=== PATIENT | male | born 1955 | race Caucasian/White ===

== ENCOUNTER 2017-06-04 10:27 | Inpatient (IN) | payer BC, OTHER ==
[~2017-06-04] VITALS: Ht 172.7 cm; Wt 90.3 kg
[2017-06-04] MEDS ORDERED: SODIUM CHLORIDE 0.9% 1000ML 1,000 ML IV STA ×3 (11:13→12:53)
[2017-06-04] MEDS ORDERED: LIDOCAINE/EPINEPHRINE 1% 20 ML VIAL INFIL ONE (11:15)
--- NOTE | 2017-06-04 11:30 | EMERGENCY ROOM VISIT NOTE ---
History First contact with patient: 11:05 Chief Complaint: LACERATION/CUT (SUT/DERMABOND) Stated Complaint: CUT ON R ARM AND R LEG Nursing Triage Summary: Pt states he slipped while tubing yesterday, injured right elbow and right gilmore. History of Present Illness The patient is a 62 year old male who presents to the Emergency Room with complaints of laceration on his right elbow and right gilmore that occurred last night at 5 PM. Patient states that he was eating out of an inner tube after [place] on [place], slipped on the [place] bed and cut his elbow and gilmore on some rocks under the water. Patient states he went to an urgent care earlier today regarding his injuries and was sent to the ER for further evaluation and concern for possible infection. Patient's last tetanus shot was 2012. He is right-hand dominant. He has had some associated chills, but no fevers, no numbness or tingling, no weakness, he denies any other injuries from the fall including did not hit his head or have loss of consciousness. Review of Systems A complete 10 point review of systems was reviewed with the patient with pertinent positives and negatives as per history of present illness. All else were negative. Past Medical/Surgical History Medical Problems: (1) Septic bursitis of elbow Social History Smoking Status: Never Smoker Current/Historical Medications No Active Prescriptions or Reported Meds Physical Exam Vital Signs Date Time Temp Pulse Resp B/P (MAP) Pulse Ox O2 Delivery O2 Flow Rate FiO2 06/04/17 12:54 38.4 98 20 154/83 95 Room Air 06/04/17 10:37 37.0 70 14 184/90 98 Room Air Physical Exam CONSTITUTIONAL: No acute distress. Patient with chills and rigors. Well appearing and well nourished. Alert and oriented X 4 with normal affect. HEENT: Normocephalic, atraumatic. Pupils equal, round and reactive to light, EOMI. TMs normal. Pharynx normal. Moist mucous membranes. NECK: Supple, full active range of motion without discomfort. RESPIRATORY: Clear to auscultation bilaterally with no wheezing, crackles, rhonchi or stridor. Equal expansion bilaterally. CARDIOVASCULAR: Regular rate and rhythm with no murmurs, rubs or gallops. Normal peripheral perfusion with normal pulses all 4 extremities. No edema. GASTROINTESTINAL: Soft, nontender, nondistended. Bowel sounds present in all quadrants. MUSCULOSKELETAL: There is a 2 cm, deep laceration on the posterior elbow. The wound tracks at least 2-3 cm in all directions. There is surrounding erythema, warmth to touch, significant tenderness and swelling of the elbow. There is copious serosanguineous drainage from the wound. There is full range of motion of the elbow joint without pain. There is a 3 cm flap-type laceration on the right anterior gilmore, and no foreign body or debris noted. Full range of motion of all joints without discomfort. INTEGUMENTARY: No rash or other significant dermatologic conditions noted. NEUROLOGIC: Cranial nerves II-XII grossly intact. No focal neurologic deficits noted. Medical Decision & Procedures ER Provider Diagnostic Interpretation: RIGHT ELBOW MIN 3 VIEWS ROUTINE CLINICAL HISTORY: Laceration over joint. COMPARISON: None FINDINGS: Alignment of the right elbow is anatomic. No fracture, joint effusion or radiopaque foreign body is identified. Soft tissue gas and soft tissue irregularity consistent with laceration overlying the posterior medial aspect of the right elbow. IMPRESSION: 1. No acute fracture, joint effusion or radiopaque foreign body. 2. Laceration overlying the posterior medial aspect of the right elbow. Laboratory Results 06/04/17 11:45 Red Blood Count 5.03, Mean Corpuscular Volume 86.5, Mean Corpuscular Hemoglobin 31.0, Mean Corpuscular Hemoglobin Concent 35.9, Mean Platelet Volume 8.6, Neutrophils (%) (Auto) 78.4, Lymphocytes (%) (Auto) 13.7, Monocytes (%) (Auto) 7.1, Eosinophils (%) (Auto) 0.3, Basophils (%) (Auto) 0.1, Neutrophils # (Auto) 11.37, Lymphocytes # (Auto) 1.99, Monocytes # (Auto) 1.03, Eosinophils # (Auto) 0.04, Basophils # (Auto) 0.02 06/04/17 11:45 Test 06/04/17 11:45 06/04/17 12:49 White Blood Count 14.51 K/uL (4.8-10.8) Red Blood Count 5.03 M/uL (4.7-6.1) Hemoglobin 15.6 g/dL (14.0-18.0) Hematocrit 43.5 % (42-52) Mean Corpuscular Volume 86.5 fL (80-100) Mean Corpuscular Hemoglobin 31.0 pg (25-34) Mean Corpuscular Hemoglobin Concent 35.9 g/dl (32-36) Platelet Count 303 K/uL (130-400) Mean Platelet Volume 8.6 fL (7.4-10.4) Neutrophils (%) (Auto) 78.4 % Lymphocytes (%) (Auto) 13.7 % Monocytes (%) (Auto) 7.1 % Eosinophils (%) (Auto) 0.3 % Basophils (%) (Auto) 0.1 % Neutrophils # (Auto) 11.37 K/uL (1.4-6.5) Lymphocytes # (Auto) 1.99 K/uL (1.2-3.4) Monocytes # (Auto) 1.03 K/uL (0.11-0.59) Eosinophils # (Auto) 0.04 K/uL (0-0.5) Basophils # (Auto) 0.02 K/uL (0-0.2) RDW Standard Deviation 39.8 fL (36.4-46.3) RDW Coefficient of Variation 12.5 % (11.5-14.5) Immature Granulocyte % (Auto) 0.4 % Immature Granulocyte # (Auto) 0.06 K/uL (0.00-0.02) Erythrocyte Sedimentation Rate 15 mm/hr (0-14) Anion Gap 8.0 mmol/L (3-11) Est Creatinine Clear Calc Drug Dose 86.2 ml/min Estimated GFR () 96.6 Estimated GFR (Non- 83.3 BUN/Creatinine Ratio 17.3 (10-20) Calcium Level 9.1 mg/dl (8.5-10.1) C-Reactive Protein 1.09 mg/dl (0-0.29) Bedside Lactic Acid Venous 1.34 mmol/L (0.90-1.70) Medications Administered Medications (Trade) Dose Ordered Sig/Zelalem Route Start Time Stop Time Status Last Admin Dose Admin Sodium Chloride 1,000 ml @ 999 mls/hr Q1H1M STAT IV 06/04/17 11:13 06/04/17 12:13 DC 06/04/17 11:45 999 MLS/HR Levofloxacin (Levaquin / D5W) 750 mg NOW STAT IV 06/04/17 12:11 06/04/17 12:13 DC 06/04/17 12:50 750 MG Clindamycin Phosphate 600 mg/ Dextrose 54 ml @ 104 mls/hr NOW STAT IV 06/04/17 12:19 06/04/17 12:50 DC 06/04/17 12:49 104 MLS/HR Sodium Chloride 1,000 ml @ 125 mls/hr Q8H STAT IV 06/04/17 12:53 06/04/17 15:56 DC 06/04/17 13:25 125 MLS/HR Sodium Chloride 1,000 ml @ 999 mls/hr Q1H1M STAT IV 06/04/17 12:53 06/04/17 13:53 DC 06/04/17 13:03 999 MLS/HR Acetaminophen 100 ml @ 400 mls/hr NOW STAT IV 06/04/17 13:13 06/04/17 13:27 DC 06/04/17 13:25 400 MLS/HR Medical Decision CC: Patient presenting with complaint of lacerations of the right elbow and gilmore Interpretation of Labs: Leukocytosis with left shift, no anemia, mild hypokalemia, no other significant joint abnormality, normal renal function, normal liver enzymes. Elevated inflammatory markers. Normal lactic acid. Blood cultures pending. Differential Diagnosis: Includes, but not limited to laceration, open fracture, retained foreign body, necrotizing fasciitis, septic joint, sepsis/bacteremia, among others. Medication Reconciliation: I attest that I have personally reviewed the patient' s current medication list. Vital signs review: I reviewed the patient's vital signs and interpret them as follows: T: Febrile; BP: Hypertensive; HR: Within normal limits; RR: Within normal limits; Pulse Ox: Within normal limits on room air. Blood pressure screening: The patient was found to have an elevated blood pressure and was referred to their primary doctor for recheck and further treatment. Summary: Patient was evaluated at bedside, history of physical exam performed. Patient is alert and in no acute distress, but with shaking chills. On my bedside reassessment of his temperature, he is noted to be febrile with a temp of 38.4. There is significant erythema, swelling, tenderness over the right posterior elbow with laceration. Copious serosanguineous drainage from the laceration and the wound tracks deep within. Orders were placed at bedside for labs, blood cultures, wound culture, IV fluids for hydration, IV antibiotics to treat infection, x-ray of the right elbow to evaluate for open fracture and retained foreign body. IV Tylenol for fever. Patient is being kept nothing by mouth. Wound culture and blood cultures were collected prior to antibiotics being started. The elbow wound was irrigated with sterile saline and explored, no foreign body was found. The laceration on the right gilmore was cleaned with Betadine, copiously irrigated with normal saline, and closed loosely with Steri-Strips. Labs reviewed as above, concerning for leukocytosis and elevated inflammatory markers in setting of fevers and chills. Patient discussed with Dr. Dueñas, who agrees with my assessment and plan. I spoke with Dr. Osullivan, orthopedics, who agrees with plan to take the patient to the OR for washout today. He recommended against CT imaging of the arm. Patient reassessed multiple times throughout ED stay, he remained stable and is improving after IV fluids and antipyretics. He was stable at time of admission, plans to go to the OR for wash out of 5 PM today. Impression Primary Impression: Cellulitis of right elbow Additional Impression: Laceration of right calf without complication Departure Information Dispostion Admitted as an inpatient (plan for OR today) Condition FAIR Prescriptions No Active Prescriptions or Reported Meds Referrals All Douglas,,D.O. (PCP) Patient Instructions My [facility] Problem Qualifiers Additional Impression: Laceration of right calf without complication Encounter type: initial encounter Qualified Codes: S81.811A - Laceration without foreign body, right lower leg, initial encounter
--- NOTE | 2017-06-04 11:43 | DIAGNOSTIC IMAGING REPORT ---
RIGHT ELBOW MIN 3 VIEWS ROUTINE CLINICAL HISTORY: Laceration over joint. COMPARISON: None FINDINGS: Alignment of the right elbow is anatomic. No fracture, joint effusion or radiopaque foreign body is identified. Soft tissue gas and soft tissue irregularity consistent with laceration overlying the posterior medial aspect of the right elbow. IMPRESSION: 1. No acute fracture, joint effusion or radiopaque foreign body. 2. Laceration overlying the posterior medial aspect of the right elbow. Electronically signed by: Taqueria Salazar M.D. 06/04/2017 11:42 AM Dictated Date/Time: 06/04/2017 11:41 AM
[2017-06-04 11:56] LABS: BASO % 0.1 %; BASO ABS # 0.02 K/uL (0-0.2); COMPLETE YES; EOS % 0.3 %; HEMATOCRIT 43.5 % (42-52); IG% 0.4 %; LYMPH % 13.7 %; LYMPH ABS # 1.99 K/uL (1.2-3.4); MEAN CELL VOLUME 86.5 fL (80-100); MEAN CORPUSCULAR HGB CONC 35.9 g/dl (32-36); MEAN PLATELET VOLUME 8.6 fL (7.4-10.4); MONO % 7.1 %; NEUT % 78.4 %; PLATELET COUNT 303 K/uL (130-400); RED BLOOD COUNT 5.03 M/uL (4.7-6.1); WHITE BLOOD COUNT 14.51 K/uL (4.8-10.8)
[2017-06-04] MEDS ORDERED: LEVAQUIN 750MG / 150ML D5W IV STA (12:11)
[2017-06-04] MEDS ORDERED: CLINDAMYCIN 600 MG/54 ML D5W IV ONE (12:15)
[2017-06-04 12:19] LABS: BUN/CREATININE RATIO 17.3 (10-20); C-REACTIVE PROTEIN 1.09 mg/dl (0-0.29); CALCIUM 9.1 mg/dl (8.5-10.1); CREATININE 0.97 mg/dl (0.60-1.40); POTASSIUM 3.3 mmol/L (3.5-5.1)
[2017-06-04] MEDS ORDERED: CLINDAMYCIN IV 600 MG in DEXTROSE 5% 50ML 50 ML IV STA (12:19)
[2017-06-04] MEDS ORDERED: ACETAMINOPHEN IV 100 ML IV STA (13:13)
[2017-06-04] MEDS ORDERED: ACETAMINOPHEN 325 MG TAB PO PRN (14:00)
[2017-06-04] MEDS ORDERED: MAGNESIUM HYDROXIDE SUSP 30 ML UDC PO PRN (14:00)
[2017-06-04] MEDS ORDERED: ALUMINUM/MAGNESIUM/SIMETH (MAALOX MAX) 30 ML UDC PO PRN (14:00)
[2017-06-04] MEDS ORDERED: ONDANSETRON INJ 2 MG/ML 2 ML VIAL IV PRN ×2 (14:00→17:45)
--- NOTE | 2017-06-04 14:18 | CONSULTATION REPORT ---
DATE OF CONSULTATION: 06/04/2017 CHIEF COMPLAINT: Right elbow laceration. HISTORY OF PRESENT ILLNESS: Mr. Ramsey is a pleasant healthy 62-year-old male, who was tubing [place]. Yesterday evening, the patient attempted to get out of the [place] and slipped on some rock. He fell in his knee deep water, cutting his elbow and his gilmore on the rocks. The patient did not seek treatment last evening for his injuries. He did go to urgent care this morning and upon evaluation, he was sent to the emergency room for possible infection. The patient is right hand dominant. He is currently comfortable. He is ambulating in his room. They did irrigate the lower extremity wound and applied Steri-Strips. Upper extremity wound has been irrigated, but is fairly deep. PAST MEDICAL HISTORY: Benign. He denies heart disease, diabetes, or history of DVT. PAST SURGICAL HISTORY: Colon resection 25 years ago. SOCIAL HISTORY: The patient denies alcohol or tobacco use. He currently works for [employer], delivering supplies. REVIEW OF SYSTEMS: See HPI. Ten other systems reviewed, all negative. PHYSICAL EXAMINATION: VITAL SIGNS: Height 67 inches, weight 199 pounds, and BMI is 30. GENERAL: This is a well-developed and well-nourished male, who is alert and oriented x3. Mood and affect are appropriate. HEENT: Normocephalic and atraumatic. Mucous membranes are moist and intact. NECK: Supple without lymphadenopathy. HEART: Regular rate and rhythm without murmurs, rubs or gallops. LUNGS: Clear to auscultation without wheezes or rhonchi. ABDOMEN: Soft and nontender. Bowel sounds are equal and active. EXTREMITIES: With attention to the right upper extremity, the patient has some swelling and erythema over the elbow, extending approximately 5-6 cm in circumference. He a deep 2-cm laceration at the olecranon. He does have some serous drainage at this time. There is no purulence. The patient has full range of motion of elbow, wrist and fingers. He has no numbness and is neurovascularly intact. X-rays of the right elbow show no acute fracture, joint effusion or foreign bodies. LABORATORY RESULTS: White blood count is 14.51. Sed rate is 15. CRP is 1.09. IMPRESSION: Right elbow laceration. PLAN: The patient is being admitted by the medical service. He has already had a dose of Levaquin and clindamycin. He is n.p.o. He is going to be taken to the OR this evening for incision and drainage of the right elbow by Dr. Osullivan. Informed consent will be obtained per Dr. Osullivan when he arrived. [facility]
[2017-06-04] MEDS ORDERED: POLYETHYLENE (MIRALAX) 17 GM PACK PO PRN (14:30)
[2017-06-04 14:50] VITALS: BP 138/80; PULSE 103; TEMP 37; O2SAT 95
[2017-06-04] MEDS ORDERED: FENTANYL CITRATE INJ 50 MCG/1 ML 2 ML VIAL ONE ×2 (16:17→19:05)
[2017-06-04] MEDS ORDERED: PROPOFOL IV EMULSION 10 MG/ML 20 ML VIAL IV ONE (16:17)
[2017-06-04] MEDS ORDERED: LIDOCAINE HCL 2% 2 ML VIAL (20MG/ML) ONE (16:17)
[2017-06-04] MEDS ORDERED: ONDANSETRON INJ 2 MG/ML 2 ML VIAL ONE (16:17)
[2017-06-04] MEDS ORDERED: MIDAZOLAM HCL 1 MG/ML 2ML VIAL ONE (16:17)
[2017-06-04] MEDS ORDERED: DEXAMETHASONE SOD INJ 4 MG/ML VIAL ONE (16:17)
--- NOTE | 2017-06-04 16:22 | History and Physical ---
History & Physical Date of Service Jun 04, 2017. History & Physical admit #[id number]
[2017-06-04] MEDS ORDERED: BUPIVACAINE 0.5 % 5 MG/1 ML MPF 30ML VIAL ONE (16:33)
[2017-06-04] MEDS ORDERED: BACITRACIN 50000 UNIT VIAL ONE (16:33)
[2017-06-04 16:38] VITALS: Ht 172.7 cm; Wt 90.3 kg
--- NOTE | 2017-06-04 17:11 | HISTORY & PHYSICAL EXAMINATION ---
DATE OF ADMISSION: 06/04/2017 CHIEF COMPLAINT: Elbow pain. HISTORY OF PRESENT ILLNESS: The patient is a very pleasant 62-year-old male, who notes that yesterday he was tubing. He slipped in fresh water and hit his right elbow and his right leg. He rinsed off the area and did no other intervention. This morning, then he woke up with his right elbow hot and painful about 7/10 and it is worse with any kind of movement. He came to an urgent care. They flushed the area and then told him to come to the ER. Here, he was seen. He was irrigated further. He was started on antibiotics. Orthopedics was consulted for surgical washout, but they asked for us to be the admitting team. REVIEW OF SYSTEMS: Positive for fevers and chills. Negative for short of breath, palpitations, chest pain or tightness. No nausea or vomiting. Review of systems is otherwise negative except for as above. PAST MEDICAL HISTORY: None. MEDICATIONS: None. PAST SURGICAL HISTORY: Appendectomy, diverticulitis, and possibly some sort of abdominal surgery, he was not quite sure of about 25 years ago. SOCIAL HISTORY: Never a smoker. Alcohol, about a beer with dinner and maybe 1 or 2 more on weekend days. No recreational drugs. FAMILY HISTORY: None of significance. PHYSICAL EXAMINATION: VITAL SIGNS: Temp of 38.4, pulse 98, respiratory rate 20, blood pressure 154/83, and 95% on room air. GENERAL: He is awake, alert, and oriented x3. Pleasant, but appears to be in a mild degree of distress from elbow pain. HEENT: Normocephalic and atraumatic. Mucous membranes are moist. CARDIOVASCULAR: Regular to slightly tachycardic. No rubs, murmurs, or gallops. LUNGS: Clear to auscultation bilaterally. No rales, rhonchi, or wheezes with good effort. ABDOMEN: Soft, nondistended, and nontender. No masses or organomegaly. EXTREMITIES: Without cyanosis, clubbing or edema. His right elbow, however, is erythematous and edematous, appearing to be mostly on the extensor and lateral surface. There is a small, but deep laceration, slightly over a centimeter wide with a mild degree of exudate and surrounding erythema and tenderness. There is no crepitus. The erythema does not track much proximally. It certainly is not circumferential and the flexor surfaces of his elbow are nonedematous, nonerythematous and nontender. Otherwise extremities show no cyanosis, clubbing or edema. No calf tenderness. SKIN: Shows no other rashes, pallor or icterus. He does have significant sunburn of his face. MUSCULOSKELETAL: Other than the elbow shows no gross lesions. MENTAL STATE: Shows good recent and remote recall. Normal mood and affect. Good judgment and insight. LABS AND DIAGNOSTICS: CBC shows a white count of 14.5 with 78.4% neutrophils, hemoglobin 15.6, and platelets 303. Basic metabolic panel with sodium 140, potassium 3.3, chloride 103, CO2 of 17, creatinine 0.97, calcium 9.1, and glucose 103. CRP of 1.09. Sed rate is 15. Lactate 1.34. Cultures from the elbow and blood cultures have been sent and are pending. Elbow x-ray shows no acute fracture, joint effusion or radiopaque foreign body. There is laceration overlying the posterior medial aspect of the right elbow. ASSESSMENT AND PLAN: 1. Sepsis. This appears to be due to cellulitis and/or septic bursitis of his elbow. See below. 2. Septic bursitis/cellulitis of the elbow. Consult orthopedics for surgical washout if this appears to be warranted. He has been started on clindamycin and Levaquin in the ER. We will continue these and give him IV fluids and follow closely. 3. Deep venous thrombosis prophylaxis. Ambulation. 4. Hypokalemia, replete. MTDD
[2017-06-04] MEDS ORDERED: ATROPINE SULFATE 0.1 MG/ML 5ML SYR IV PRN (17:45)
[2017-06-04] MEDS ORDERED: EpHEDrine SULFATE INJ 50 MG/ML AMP IV PRN (17:45)
[2017-06-04] MEDS ORDERED: FENTANYL CITRATE INJ 50 MCG/1 ML 2 ML VIAL IV PRN (17:45)
[2017-06-04] MEDS ORDERED: PROMETHAZINE HCL INJ 6.25 MG in SODIUM CHLORIDE 0.9% 50ML 50 ML IV PRN (17:45)
--- NOTE | 2017-06-04 18:50 | History & Physical Bridge Note ---
H&P Re-Evaluation Bridge Note: I have examined the patient, reviewed the History & Physical and in the interval since the performance of the History & Physical I have noted the following changes of clinical significance: will plan for right elbow I and D, with olecranon bursetcotmy. i saw the patient in the holding area, discussed risks and benefits. No changes noted
[2017-06-04] MEDS ORDERED: KETOROLAC TROMETHAMINE 30 MG/ML VIAL ONE (19:29)
[2017-06-04] MEDS ORDERED: OXYCODONE/ACETAMINOPHEN 5-325 TAB PO PRN ×2 (19:45)
--- NOTE | 2017-06-04 19:52 | [facility] Post Operative Brief Note ---
Immediate Operative Summary Operative Date Jun 04, 2017. Pre-Operative Diagnosis right olecranon bursitis, right elbow infection Post-Operative Diagnosis same Procedure(s) Performed olecranon bursectomy and I and D of right elbow Surgeon margarita Nutrition Worker Surgeon(s) none Estimated Blood Loss 5 ml Findings gross purulence Specimens cutlures Drains mahnaz Anesthesia gen Complication(s) None Disposition Recovery Room / PACU
[2017-06-04 20:10] VITALS: BP 146/87; PULSE 84; TEMP 37.1; O2SAT 96
[2017-06-04] MEDS ORDERED: POTASSIUM CHLORIDE 10 MEQ TABCR PO ONE (20:15)
[2017-06-04 20:49] VITALS: BP 149/81; PULSE 76; TEMP 36.9; O2SAT 97
[2017-06-04] MEDS: CLINDAMYCIN IV 300 MG in DEXTROSE 5% 50ML 50 ML IV SCH (20:52)
--- NOTE | 2017-06-04 21:08 | Anesthesiology Progress Note ---
Anesthesia Post Op Note Date & Time Jun 04, 2017 at 21:08 Vital Signs Pain Intensity: 0 Vital Signs Past 12 Hours Date Time Temp Pulse Resp B/P (MAP) Pulse Ox O2 Delivery O2 Flow Rate FiO2 06/04/17 20:49 36.9 76 17 149/81 (103) 97 Room Air 06/04/17 20:10 37.6 87 16 148/89 98 Nasal Cannula 3 06/04/17 20:00 37.6 82 16 155/90 98 Nasal Cannula 3 06/04/17 19:50 82 20 119/98 98 Nasal Cannula 3 06/04/17 19:41 36.9 95 20 152/92 95 Nasal Cannula 3 06/04/17 17:53 37 96 16 147/89 (108) 95 Room Air 06/04/17 16:38 Room Air 06/04/17 14:50 37.0 103 17 138/80 (99) 95 Room Air 06/04/17 14:25 38.2 06/04/17 14:13 110 16 143/85 93 Room Air 06/04/17 12:54 38.4 98 20 154/83 95 Room Air 06/04/17 10:37 37.0 70 14 184/90 98 Room Air Notes Mental Status: alert / awake / arousable, participated in evaluation Pt Amnestic to Procedure: Yes Nausea / Vomiting: adequately controlled Pain: adequately controlled Airway Patency, RR, SpO2: stable & adequate BP & HR: stable & adequate Hydration State: stable & adequate Anesthetic Complications: no major complications apparent
[2017-06-04 21:17] VITALS: BP 144/87; PULSE 87; TEMP 36.7; O2SAT 96
[2017-06-04 22:10] VITALS: BP 110/69; PULSE 71; TEMP 37; O2SAT 96
--- NOTE | 2017-06-04 22:28 | OPERATIVE REPORT ---
DATE OF OPERATION: 06/04/2017 PREOPERATIVE DIAGNOSIS: Right septic olecranon bursitis. POSTOPERATIVE DIAGNOSIS: Same. PROCEDURE: 1. Right elbow irrigation and debridement. 2. Right elbow olecranon bursectomy. SURGEON: Dr. Osullivan. ADVERTISER: None. ANESTHESIA: General. INDICATIONS: This is a 62-year-old gentleman who sustained a sharp laceration in a [place] involving a rock over the olecranon bursa. He presents with olecranon bursitis. I saw him in the preoperative holding area, we discussed the risks, benefits, reasonable outcomes and expectations. His exam shows a large amount of gross purulence coming from his right elbow. Discussed possibly need for further surgery, etc. I consented him for irrigation and debridement of right elbow with olecranon bursectomy. DESCRIPTION OF PROCEDURE: The patient had a traumatic laceration directly over the olecranon bursa. This was extended proximally and distally. A large amount of gross purulence was encountered. This was sent for culture. I performed irrigation and debridement of skin, subcutaneous tissue and bone. He did have a laceration down to the bone which did involve the periosteum. With a curette, I performed debridement of bone. I then performed an olecranon bursectomy removing the olecranon bursa with scissors and a rongeur. A significant amount of infection was seen in the olecranon bursal region. The area was then copiously irrigated with 3 liters of bacitracin impregnated normal saline. I closed the surgical incisions with 2-0 nylon and left the central portion of the traumatic incision open. A Yajaira drain was applied. I injected Marcaine in the local area at the conclusion of the procedure for pain control. The patient was placed in a soft dressings and sent to the PACU in a stable condition. Postoperative plan will be remove dressings and drain on Sunday and adjust antibiotics as necessary. I discussed the results of the procedure with the family in detail. I attest to the content of the Intraoperative Record and any orders documented therein. Any exception s are noted below.
[2017-06-04 23:10] VITALS: BP 137/80; PULSE 80; TEMP 36.7; O2SAT 93
--- NOTE | 2017-06-05 00:04 | EMERGENCY ROOM VISIT NOTE ---
ED Visit Note First contact with patient: 11:05 I have seen and examined the pt at bedside. I had several discussion with the primary provider/DIPLOMATIC INTERPRETER/TRANSLATOR regarding the patients presentation/exam/labs/imaging/ disposition. Pt was well appearing at the time of my exam, receiving ivf and iv antibiotics. Discussed his condition and our concern. Discussed ortho evaluation and OR wash out planned. Pt verbalized understanding and was agreeable. Pt with mild tachycardia, other VS stable during my exam. Stated pain only at affected elbow, was offered IV pain medication and declined. Pt awaiting admission/OR wash out.
[2017-06-05] MEDS: CLINDAMYCIN IV 300 MG in DEXTROSE 5% 50ML 50 ML IV SCH ×3 (03:44→20:34)
[2017-06-05 04:06] VITALS: BP 129/72; PULSE 56; TEMP 36.6; O2SAT 96
[2017-06-05 06:16] LABS: BASO % 0.1 %; BASO ABS # 0.01 K/uL (0-0.2); COMPLETE YES; HEMATOCRIT 40.1 % (42-52); IG% 0.2 %; LYMPH % 6.3 %; MEAN CORPUSCULAR HEMOGLOBIN 29.5 pg (25-34); MEAN CORPUSCULAR HGB CONC 33.9 g/dl (32-36); MEAN PLATELET VOLUME 8.6 fL (7.4-10.4); MONO % 4.5 %; NEUT % 88.9 %; PLATELET COUNT 235 K/uL (130-400); RED BLOOD COUNT 4.61 M/uL (4.7-6.1); WHITE BLOOD COUNT 14.25 K/uL (4.8-10.8)
[2017-06-05 06:55] LABS: BUN/CREATININE RATIO 15.3 (10-20); CALCIUM 8.6 mg/dl (8.5-10.1); CREATININE 0.75 mg/dl (0.60-1.40); POTASSIUM 3.8 mmol/L (3.5-5.1)
[2017-06-05 07:37] VITALS: BP 128/76; PULSE 82; TEMP 36.6; O2SAT 95
[2017-06-05 08:44] VITALS: O2SAT 95
--- NOTE | 2017-06-05 09:54 | Orthopedic Progress Note ---
Orthopedic Progress Note Date of Service Jun 05, 2017. Subjective Post OP Day: 1 Reports: feeling well, Denies: chest pain, SOB, nausea / vomiting, light headedness, calf pain Objective calves soft nontender, N/V intact, capillary refill less than 2 sec., dressing C /D/I, A&O x3, toes mobile Date Time Temp Pulse Resp B/P (MAP) Pulse Ox O2 Delivery O2 Flow Rate FiO2 06/05/17 08:44 95 Room Air 06/05/17 07:37 36.6 82 14 128/76 (93) 95 Room Air 06/05/17 07:15 Room Air 06/05/17 04:06 36.6 56 16 129/72 (91) 96 Room Air Free Flow/[place] 06/04/17 23:20 Room Air 06/04/17 23:10 36.7 80 16 137/80 (99) 93 Room Air 06/04/17 22:10 37.0 71 18 110/69 (83) 96 Nasal Cannula 2.0 06/04/17 21:17 36.7 87 18 144/87 (106) 96 Room Air 06/04/17 20:49 36.9 76 17 149/81 (103) 97 Room Air 06/04/17 20:10 Nasal Cannula 2.0 06/04/17 20:10 37.1 84 16 146/87 (106) 96 Nasal Cannula 2.0 06/04/17 20:10 96 Nasal Cannula 2.0 06/04/17 20:10 37.6 87 16 148/89 98 Nasal Cannula 3 06/04/17 20:00 37.6 82 16 155/90 98 Nasal Cannula 3 06/04/17 19:50 82 20 119/98 98 Nasal Cannula 3 06/04/17 19:41 36.9 95 20 152/92 95 Nasal Cannula 3 06/04/17 17:53 37 96 16 147/89 (108) 95 Room Air 06/04/17 16:38 Room Air 06/04/17 14:50 37.0 103 17 138/80 (99) 95 Room Air 06/04/17 14:25 38.2 06/04/17 14:13 110 16 143/85 93 Room Air 06/04/17 12:54 38.4 98 20 154/83 95 Room Air 06/04/17 10:37 37.0 70 14 184/90 98 Room Air Laboratory Results 24 Hours: Test 06/04/17 11:45 06/05/17 05:52 White Blood Count 14.51 K/uL 14.25 K/uL Red Blood Count 5.03 M/uL 4.61 M/uL Hemoglobin 15.6 g/dL 13.6 g/dL Hematocrit 43.5 % 40.1 % Mean Corpuscular Volume 86.5 fL 87.0 fL Mean Corpuscular Hemoglobin 31.0 pg 29.5 pg Mean Corpuscular Hemoglobin Concent 35.9 g/dl 33.9 g/dl Platelet Count 303 K/uL 235 K/uL Mean Platelet Volume 8.6 fL 8.6 fL Neutrophils (%) (Auto) 78.4 % 88.9 % Lymphocytes (%) (Auto) 13.7 % 6.3 % Monocytes (%) (Auto) 7.1 % 4.5 % Eosinophils (%) (Auto) 0.3 % 0.0 % Basophils (%) (Auto) 0.1 % 0.1 % Neutrophils # (Auto) 11.37 K/uL 12.67 K/uL Lymphocytes # (Auto) 1.99 K/uL 0.90 K/uL Monocytes # (Auto) 1.03 K/uL 0.64 K/uL Eosinophils # (Auto) 0.04 K/uL 0.00 K/uL Basophils # (Auto) 0.02 K/uL 0.01 K/uL Additional Notes: GRAM STAIN Final 06/05/17-0800 RESULT MODERATE WBCs SEEN MODERATE GRAM NEGATIVE BACILLI DEEP WOUND CULTURE Preliminary 06/05/17-09 Organism 1 GRAM NEGATIVE BACILLI QUANITY MANY SENS SENSITIVITY TO FOLLOW +MIXWOUND PLUS LOW COUNTS OF PROBABLE SKIN RIVAS Assessment & Plan Assessment: POD#1 sp right olecranon bursectomy Plan: DC DRESSING/DAVIDSON SUNDAY CULTURES PENDING- CONTINUE IV CLINDA/PO LEVAQUIN PAIN CONTROL MEDICAL MGT Inhouse Planning Pain Management: Percocet
[2017-06-05] MEDS: LEVOFLOXACIN 750 MG TAB PO SCH (10:34)
[2017-06-05 11:45] VITALS: BP 138/84; PULSE 90; TEMP 36.9; O2SAT 94
[2017-06-05] MEDS ORDERED: VANCOMYCIN CONSULT ACTIVE PRN (14:45)
--- NOTE | 2017-06-05 15:24 | Pharmacy Progress Note ---
Pharmacy Antibiotic Consult Date of Service: Jun 05, 2017. Pharmacy Dosing Scope Pharmacy is consulted to initiate Vancomycin IV dosing therapy, order appropriate labs and adjust drug dose/frequency. Subjective The patient is a 62 year old male admitted on Jun 04, 2017 at 13:49. Objective Height (Feet): 5 Height (Inches): 8.00 Weight (Kilograms): 90.300 Lab Results (24hrs): Test 06/05/17 05:52 White Blood Count 14.25 K/uL (4.8-10.8) Red Blood Count 4.61 M/uL (4.7-6.1) Hemoglobin 13.6 g/dL (14.0-18.0) Hematocrit 40.1 % (42-52) Mean Corpuscular Volume 87.0 fL (80-100) Mean Corpuscular Hemoglobin 29.5 pg (25-34) Mean Corpuscular Hemoglobin Concent 33.9 g/dl (32-36) Platelet Count 235 K/uL (130-400) Mean Platelet Volume 8.6 fL (7.4-10.4) Neutrophils (%) (Auto) 88.9 % Lymphocytes (%) (Auto) 6.3 % Monocytes (%) (Auto) 4.5 % Eosinophils (%) (Auto) 0.0 % Basophils (%) (Auto) 0.1 % Neutrophils # (Auto) 12.67 K/uL (1.4-6.5) Lymphocytes # (Auto) 0.90 K/uL (1.2-3.4) Monocytes # (Auto) 0.64 K/uL (0.11-0.59) Eosinophils # (Auto) 0.00 K/uL (0-0.5) Basophils # (Auto) 0.01 K/uL (0-0.2) RDW Standard Deviation 39.5 fL (36.4-46.3) RDW Coefficient of Variation 12.3 % (11.5-14.5) Immature Granulocyte % (Auto) 0.2 % Immature Granulocyte # (Auto) 0.03 K/uL (0.00-0.02) Sodium Level 138 mmol/L (136-145) Potassium Level 3.8 mmol/L (3.5-5.1) Chloride Level 106 mmol/L (98-107) Carbon Dioxide Level 27 mmol/L (21-32) Anion Gap 5.0 mmol/L (3-11) Blood Urea Nitrogen 11 mg/dl (7-18) Creatinine 0.75 mg/dl (0.60-1.40) Est Creatinine Clear Calc Drug Dose 111.4 ml/min Estimated GFR () 113.9 Estimated GFR (Non- 98.3 BUN/Creatinine Ratio 15.3 (10-20) Random Glucose 147 mg/dl (70-99) Calcium Level 8.6 mg/dl (8.5-10.1) Micro Results: See EMR Recent Pertinent Medications Item Value Date Time Clindamycin 52 ml @ 100 mls/hr 06/04/17 2000 Phosphate 300 mg/ Q8H/IV 06/05/17 1210 Dextrose Levofloxacin 750 mg 06/05/17 1100 (Levaquin Tab) DAILY@11/PO 06/05/17 1034 Assessment & Plan 62 YO male started on vancomycin, clindamycin, and levaquin with possible right elbow cellulitis. Loading dose: 1750 mg IV X 1 dose then: 1250 mg IV every 12 hours. Goal trough level estimate: between 10 - 15 mcg/mL. Peak and trough or random level has been ordered for: @ 0330. CrCl: >100 ml/min Pharmacy will continue to follow and will adjust dose/frequency as necessary. Thank you
[2017-06-05] MEDS ORDERED: VANCOMYCIN INJ 1,750 MG in SODIUM CHLORIDE 0.9% 500ML 500 ML IV SCH (15:30)
[2017-06-05 16:49] VITALS: BP 120/72; PULSE 72; TEMP 36.9; O2SAT 95
--- NOTE | 2017-06-05 20:44 | Progress Note ---
Subjective Date of Service: Jun 05, 2017. Subjective Pt evaluation today including: conversation w/ patient, physical exam, chart review, lab review, review of inpatient medication list Pain: right elbow - mild, but improved PO Intake: normal Voiding: no voiding problems ambulating fine feels better today appetite is normal no nausea/emesis/abd pain/sob no fevers or chills elbow overall "feels good" Problem List Medical Problems: (1) Cellulitis of right elbow Status: Acute (2) Laceration of right calf without complication Status: Acute Review of Systems Respiratory: No shortness of breath Cardiac: No chest pain Abdomen: No pain Neurologic: No weakness, No numbness/tingling Objective Vital Signs Date Time Temp Pulse Resp B/P (MAP) Pulse Ox O2 Delivery O2 Flow Rate FiO2 06/05/17 16:49 36.9 72 18 120/72 (88) 95 Room Air 06/05/17 11:45 36.9 90 14 138/84 (102) 94 Room Air 06/05/17 08:44 95 Room Air 06/05/17 07:37 36.6 82 14 128/76 (93) 95 Room Air 06/05/17 07:15 Room Air 06/05/17 04:06 36.6 56 16 129/72 (91) 96 Room Air Free Flow/Blowby 06/04/17 23:20 Room Air 06/04/17 23:10 36.7 80 16 137/80 (99) 93 Room Air 06/04/17 22:10 37.0 71 18 110/69 (83) 96 Nasal Cannula 2.0 06/04/17 21:17 36.7 87 18 144/87 (106) 96 Room Air 06/04/17 20:49 36.9 76 17 149/81 (103) 97 Room Air Physical Exam General Appearance: no apparent distress ENT: pharynx normal Neck: no JVD Respiratory/Chest: lungs clear, no respiratory distress, no accessory muscle use Cardiovascular: regular rate, rhythm, no gallop, no murmur Abdomen: normal bowel sounds, non tender, soft, no organomegaly Extremities: no pedal edema, + pertinent finding (right hand - cap refill < 2 sec; pulses 2+ ) Skin: + pertinent finding (laceration just inferior to right knee - clean, steri strips intact, no cellulitis) Comments: musculo - large dressing in place right elbow (not removed) Laboratory Results Last 24 Hours Test 06/05/17 05:52 White Blood Count 14.25 K/uL Red Blood Count 4.61 M/uL Hemoglobin 13.6 g/dL Hematocrit 40.1 % Mean Corpuscular Volume 87.0 fL Mean Corpuscular Hemoglobin 29.5 pg Mean Corpuscular Hemoglobin Concent 33.9 g/dl Platelet Count 235 K/uL Mean Platelet Volume 8.6 fL Neutrophils (%) (Auto) 88.9 % Lymphocytes (%) (Auto) 6.3 % Monocytes (%) (Auto) 4.5 % Eosinophils (%) (Auto) 0.0 % Basophils (%) (Auto) 0.1 % Neutrophils # (Auto) 12.67 K/uL Lymphocytes # (Auto) 0.90 K/uL Monocytes # (Auto) 0.64 K/uL Eosinophils # (Auto) 0.00 K/uL Basophils # (Auto) 0.01 K/uL RDW Standard Deviation 39.5 fL RDW Coefficient of Variation 12.3 % Immature Granulocyte % (Auto) 0.2 % Immature Granulocyte # (Auto) 0.03 K/uL Sodium Level 138 mmol/L Potassium Level 3.8 mmol/L Chloride Level 106 mmol/L Carbon Dioxide Level 27 mmol/L Anion Gap 5.0 mmol/L Blood Urea Nitrogen 11 mg/dl Creatinine 0.75 mg/dl Est Creatinine Clear Calc Drug Dose 111.4 ml/min Estimated GFR () 113.9 Estimated GFR (Non- 98.3 BUN/Creatinine Ratio 15.3 Random Glucose 147 mg/dl Calcium Level 8.6 mg/dl Assessment and Plan 62yo male - 1. right septic olecrenon bursitis 2nd to injury while rafting [place] a [place] - s/p bursectomy, POD #1 s/p I & D with washout fortunately the elbow joint was NOT affected 2 separate cultures growing separate pathogens - GNR and staph species spoke with pharmacy - adding vanco for staph cont levaquin and clindamycin for gram negative and anaerobe coverage blood cx's neg appreciate ortho assistance pt confirmed today that his TDaP is UTD 2. DVT proph - he is ambulating well, but will add chemical means in AM if his stay becomes prolonged 3. right leg laceration - clean, intact, no signs of complicating infection; again tetanus is UTD Continued [facility] stay due to: multiple IV medications needed Discharge planning: home
[2017-06-05 23:37] VITALS: BP 127/70; PULSE 65; TEMP 36.9; O2SAT 95
[2017-06-06] MEDS: VANCOMYCIN INJ 1,250 MG in SODIUM CHLORIDE 0.9% 250ML 250 ML IV SCH ×2 (04:22→16:24)
[2017-06-06] MEDS: CLINDAMYCIN IV 300 MG in DEXTROSE 5% 50ML 50 ML IV SCH ×3 (04:22→20:16)
[2017-06-06 07:02] LABS: CREATININE 0.79 mg/dl (0.60-1.40)
[2017-06-06 07:10] VITALS: BP 165/70; PULSE 58; TEMP 36.7; O2SAT 96
[2017-06-06] MEDS: LEVOFLOXACIN 750 MG TAB PO SCH (10:31)
[2017-06-06 15:25] VITALS: BP 164/94; PULSE 66; TEMP 36.7; O2SAT 95
--- NOTE | 2017-06-06 17:36 | Progress Note ---
Subjective Date of Service: Jun 06, 2017. Subjective Pt evaluation today including: conversation w/ patient, conversation w/ family (), physical exam, chart review, lab review, conversation w/ instructional systems design consultant ( orthopedic PA), review of inpatient medication list Pain: right elbow - mild PO Intake: normal Voiding: no voiding problems patient feels good ambulating well no issues with right arm except mild right elbow pain no diarrhea Problem List Medical Problems: (1) Cellulitis of right elbow Status: Acute (2) Laceration of right calf without complication Status: Acute Review of Systems Constitutional: No fever, No chills Respiratory: No shortness of breath Cardiac: No chest pain Abdomen: No pain Objective Vital Signs Date Time Temp Pulse Resp B/P (MAP) Pulse Ox O2 Delivery O2 Flow Rate FiO2 06/06/17 15:25 36.7 66 16 164/94 (117) 95 Room Air 06/06/17 07:25 Room Air 06/06/17 07:10 36.7 58 19 165/70 (101) 96 Room Air 06/06/17 00:10 Room Air 06/05/17 23:37 36.9 65 16 127/70 (89) 95 Room Air 06/05/17 20:15 Room Air Physical Exam General Appearance: no apparent distress ENT: pharynx normal Neck: no JVD Respiratory/Chest: lungs clear, no respiratory distress, no accessory muscle use Cardiovascular: regular rate, rhythm, no gallop, no murmur Abdomen: normal bowel sounds, non tender, soft, no organomegaly Extremities: no pedal edema Neurologic/Psychiatric: alert, oriented x 3 Skin: + pertinent finding (right elbow - dressing removed; mahnaz drain in place with scant drainage; sutures intact; small amount of xeroform present; NO erythema of elbow; minimal swelling; active ROM largely normal; joint without effusion) Comments: laceration inferior to right knee on tibia - clean, well-approximated, no drainage; steri strips in place Laboratory Results Last 24 Hours Test 06/06/17 05:58 Creatinine 0.79 mg/dl Est Creatinine Clear Calc Drug Dose 105.8 ml/min Estimated GFR () 111.5 Estimated GFR (Non- 96.2 Assessment and Plan 62yo male - 1. right septic olecrenon bursitis 2nd to injury while rafting in a [place] - s/p bursectomy, POD #2, along with I & D with washout fortunately the elbow joint was NOT affected cultures with staph aureus, clostridium, and aeromonas leave current antibiotics as is for now until staph aureus sensitivities have returned levaquin will cover aeromonas clindamycin will cover anaerobes overall MARKEDLY IMPROVED following my visit the dressings were replaced and SHARON wrap put back on spoke with ortho who will likely pull drain soon 2. DVT proph - add lovenox once daily 3. right leg laceration - clean, intact, no signs of complicating infection; tetanus booster is UTD anticipate d/c in AM Continued [facility] stay due to: multiple IV medications needed Discharge planning: home
[2017-06-06] MEDS ORDERED: ENOXAPARIN 40 MG/0.4 ML SYR SQ ONE (17:45)
--- NOTE | 2017-06-06 18:50 | Consultant Recommendations ---
Color Shop Helper Recommendations Date of Service Jun 06, 2017. Color Shop Helper Recommendations continue dry sterile dressing changes once a day follow up with Dr. Osullivan or his PA 10-14 days from the date of the surgery. Please call office for appt... [phone]
--- NOTE | 2017-06-06 18:56 | PROGRESS NOTE ---
DATE: 06/06/2017 SUBJECTIVE: Flakito was seen at bedside today. No complaints. He states the elbow feels much better. Denies any fever or chills. OBJECTIVE: RIGHT ELBOW EXAMINATION: Right elbow shows resolution of infection. He has no significant erythema. He is scant drainage on his dressing, no active drainage. No gross pus. No evidence of reaccumulation of septic olecranon bursitis. Elbow is mildly stiff. ASSESSMENT: Postop day #2 status post I&D of septic olecranon bursitis. PLAN: At this point in time, he should not require any further surgical treatment. I removed his [place] drain today. He may be discharged on the appropriate antibiotics as per the hospitalist. Follow up with me in 10-14 days from the date of the surgery. I will sign off. Please call if you have any further questions or concerns.
[2017-06-06 23:12] VITALS: BP 140/79; PULSE 56; TEMP 36.8; O2SAT 95
[2017-06-06 23:16] VITALS: BP 140/79; PULSE 56; TEMP 36.8; O2SAT 95
[2017-06-07] MEDS ORDERED: VANCOMYCIN TROUGH SCH (03:30)
[2017-06-07] MEDS: VANCOMYCIN INJ 1,250 MG in SODIUM CHLORIDE 0.9% 250ML 250 ML IV SCH (03:57)
[2017-06-07] MEDS: CLINDAMYCIN IV 300 MG in DEXTROSE 5% 50ML 50 ML IV SCH (03:57)
[2017-06-07 04:22] LABS: CREATININE 0.88 mg/dl (0.60-1.40)
[2017-06-07 07:58] VITALS: BP 120/80; PULSE 62; TEMP 36.9; O2SAT 98
[2017-06-07 08:11] VITALS: O2SAT 98
[2017-06-07] MEDS ORDERED: ENOXAPARIN 40 MG/0.4 ML SYR SQ SCH (09:00)
[2017-06-07] MEDS ORDERED: AMOXICILLIN/CLAVULANATE TAB 875 MG TAB PO SCH (10:00)
--- NOTE | 2017-06-07 10:43 | Progress Note ---
Progress Note Date of Service Jun 07, 2017. Progress Note 1045 - time S: no events feels good no fever no diarrhea O: no fever, VSS right elbow - dressings removed; sutures intact; minimal erythema on olecrenon area; no drainage; no warmth; minimal tenderness; no cellulitis above or below the elbow active ROM intact cultures - MSSA aeromonas sensitive to cipro clostridium perforinges A/P: septic olecrenon bursitis s/p bursectomy of right elbow due to water injury clinically stable/improved cleared by ortho for home d/c home 10 days each of augmentin BID and cipro BID along with probiotics daily dressing changes f/u ortho 10-14 days f/u PCP early this week Vane BAPTISTE MD
--- NOTE | 2017-06-07 10:44 | Discharge Summary ---
Discharge Summary Date of Service Jun 07, 2017. Discharge Summary Admission Date: Jun 04, 2017 at 13:49 Discharge Date: Jun 07, 2017 Discharge Disposition: Home Principal Diagnosis: right elbow septic olecrenon bursitis Problems/Secondary Diagnoses: laceration of right distal leg Procedures: 1. Right elbow irrigation and debridement. 2. Right elbow olecranon bursectomy. Bud Osullivan MD Consultations: orthopedics - Bud Osullivan MD Medication Reconciliation New Medications: Lactobacillus (Lactinex) Chw 3 TAB PO TID for 10 Days, #90 CHW 0 Refills Amoxicillin & Pot Clavulanate (Amoxicillin/Clavulanate P) 1 Tab Tab 875 MG PO BIDM for 10 Days, #20 TAB 0 Refills Ciprofloxacin (Ciprofloxacin HCl) 500 Mg Tab 500 MG PO BID for 10 Days, #20 TAB 0 Refills Discharge Exam Physical Exam: General Appearance: WD/WN, no apparent distress ENT: pharynx normal Neck: no JVD Respiratory/Chest: lungs clear, no respiratory distress, no accessory muscle use Cardiovascular: regular rate, rhythm, no gallop, no murmur, normal peripheral pulses Abdomen / GI: normal bowel sounds, non tender, soft, no organomegaly Extremities: no pedal edema, + pertinent finding (with active ROM of the right elbow he has mild discomfort) Skin: + pertinent finding (right elbow - sutures intact over the olecrenon process area; there is no drainage; there is no erythema; minimal amount of swelling present; right [place], just inferior to right knee - well approximaed laceration with multiple steri strips in place, no erythema or drainage ) Hospital Course HISTORY OF PRESENT ILLNESS: The patient is a very pleasant 62-year-old male with no significant PMH who presented with a hot, erythematous, and painful right elbow after he slipped in a local [place] while tubing. He hit his right elbow and right leg on a large rock. He rinsed off the area and did no other intervention. Upon awakening on the day of admission he noted the right elbow to be hot and painful. The pain was rated about 7/10 and was worse with any kind of movement. He presented to a local urgent care where they flushed the area and then told him to come to the ER at [facility]. In the ER the right elbow was cleansed & irrigated further. He was then started on antibiotics. Orthopedics was then consulted for surgical washout. HOSPITAL COURSE: The patient underwent irrigation and debridement of the right elbow septic olecronon bursitis by Dr. Bud Osullivan. He also underwent bursectomy. Following his operation he was continued on broad-spectrum IV antibiotic therapy. Blood cultures remained negative while hospitalized. Cultures from the right elbow grew methicillin-sensitive staph aureus, aeromonas , clostridium perfringes, and other anaerobes. He will complete 10 additional days of augmentin twice daily and cipro twice daily after discharge. His mahnaz drain was pulled from the elbow prior to discharge, and at home he will perform sterile, dry dressing changes to the elbow daily. His right elbow looked very good and without any drainage/infection at time of discharge. His right leg laceration was treated with steri strips and was stable during this stay. Of note - the patient's Tetanus booster was up-to-date per the patient. Follow-up with Dr. Osullivan's office was arranged at time of hospital discharge. Total Time Spent: Less than 30 minutes This includes examination of the patient, discharge planning, medication reconciliation, and communication with other providers. Discharge Instructions Please refer to the electronic Patient Visit Report (Discharge Instructions) for additional information. Follow-Up 1. [facility] Office in [place] with Dr. Nilson Bhakta on SundayJune 13 at 1:[address] Bud Osullivan's office with his assistant women's tennis coach, Katarina Grace PA-C, on June 14 at 1:00 pm. Additional Copies To Marlena Bhakta M.D. (MEDICAL); Bud Osullivan MD; Katarina Grace PA-C
[2017-06-07] MEDS ORDERED: AMOX1TAB43 PO (10:45)
[2017-06-07] MEDS ORDERED: CPR500 PO (10:45)
[2017-06-07] MEDS ORDERED: LACTCHW3 PO (10:45)
[2017-06-07 10:53] VITALS: BP 120/80; PULSE 62; TEMP 36.9; O2SAT 98
--- NOTE | 2017-06-07 10:55 | Discharge Instructions ---
Discharge Instructions Date of Service Jun 07, 2017. Admission Reason for Admission: Septic Bursitis Of Elbow Discharge Discharge Diagnosis / Problem: septic bursitis of right elbow with need for surgery & antibiotics Discharge Goals Goal(s): Decrease discomfort, Improve disease control, Learn about illness, Diagnostic testing, Therapeutic intervention Activity Recommendations Activity Limitations: as noted below 1. avoid excessive flexion of the right elbow ("bicep curls") 2. avoid lifting objects more than 15 pounds with the right arm until cleared by Dr. Osullivan 3. would not drive for 2-3 more days until it is more comfortable to move the right arm 4. ok to shower at this time but do keep the right elbow dressings clean & dry during the shower . Instructions / Follow-Up Instructions / Follow-Up From Dr. Colby - 1. Antibiotics for your infected elbow - * starting TONIGHT 06/07/17 take the following - * augmentin (amoxicillin-clavulanate) 875mg twice a day for 10 days * cipro 500mg twice a day for 10 days * all antibiotics can cause diarrhea and thus I recommend you take "probiotics" * lactinex chew tabs, 3 tabs three times a day for 10 days * the lactinex may help prevent diarrhea 2. Starting TOMORROW AM, 06/08/17, please change the elbow dressing. Perform the dressing changes on a daily basis until seen by orthopedics. Tomorrow AM you can discard the yellow gauze and all dressings. You do not need to do any further yellow gauze at home. Then, simply place 2 or 3 "4x4's" directly on the elbow, followed by a "kerlix" dressing/wrap, followed by an SHARON wrap. Again do this daily. 3. ICE as needed for swelling. 4. [id number] motrin and/or tylenol for pain. 5. Return to [facility] if - * you develop fever greater than 100.5 degrees * you develop worsening pain or swelling of the elbow * you notice worsening drainage, pus, etc from the elbow * you notice worsening redness of the elbow and/or arm * you develop severe diarrhea 6. Follow-up appointments - see separate section as noted in this handout. Current Hospital Diet Patient's current hospital diet: Regular Diet Discharge Diet Recommended Diet: Regular Diet Procedures Procedures Performed: olecranon bursectomy and incision/drainage of right elbow Pending Studies Studies pending at discharge: no Work Instructions Return To Work: after follow-up Lifting Limitations: no more than 15 pounds with the right arm Additional Instructions: Mr. Ramsey was hospitalized at [facility] from 06/04/17 to 06/07/17. He should remain out of work until cleared by orthopedics at his post-discharge follow-up appointment. Medical Emergencies . Who to Call and When: Medical Emergencies: If at any time you feel your situation is an emergency, please call 911 immediately. . Non-Emergent Contact Non-Emergency issues call your: Surgeon (orthopedics ) Call Non-Emergent contact if: temperature is above 100.5, your pain is not controlled, your pain is worsening, your pain is unusual for you, your pain is concerning you, wound has increased drainage, wound has increased redness, wound has increased pain, you have any medication questions . . "Provider Documentation" section prepared by Francisco Javier Colby. . Boarder Machine Recommendations Boarder Machine Recommendations: continue dry sterile dressing changes once a day follow up with Dr. Osullivan or his PA 10-14 days from the date of the surgery. Please call office for appt... [phone] VTE Core Measure Inpt VTE Proph given/why not?: Enoxaparin (Lovenox)SQ
[2017-06-07] MEDS ORDERED: CIPROFLOXACIN 500 MG TAB PO SCH (11:00)
== END 2017-06-07 11:20 | disposition home or self-care (01) | DRG 508 ==
LOC: C.EDD 11:57 → C.MSW 13:49 → ENRESERV 14:06
PROVIDERS: ADMIT Family Medicine; ATTEND Internal Medicine
PROC: 0R9L00Z Drainage of Right Elbow Joint with Drainage Device, Open Approach (ICD-10-PCS; principal; 2017-06-04 10:00)
PROC: 0R9L0ZX Drainage of Right Elbow Joint, Open Approach, Diagnostic (ICD-10-PCS; principal; 2017-06-04 10:00)
PROC: 0PBK0ZZ Excision of Right Ulna, Open Approach (ICD-10-PCS; principal; 2017-06-04 10:00)
PROC: 0RB Upper Joints, Excision (ICD-10-PCS; principal; 2017-06-04 10:00)
DX: M70.21 Olecranon bursitis, right elbow (principal); E87.6 Hypokalemia; S81.811A Laceration without foreign body, right lower leg, initial encounter; W16.122A Fall into natural body of water striking bottom causing other injury, initial encounter; B95.61 Methicillin susceptible Staphylococcus aureus infection as the cause of diseases classified elsewhere; Y92.828 Other wilderness area as the place of occurrence of the external cause; B96.7 Clostridium perfringens [C. perfringens] as the cause of diseases classified elsewhere; B96.89 Other specified bacterial agents as the cause of diseases classified elsewhere; G47.33 Obstructive sleep apnea (adult) (pediatric); R00.0 Tachycardia, unspecified; Z72.89 Other problems related to lifestyle

== ENCOUNTER → 2017-09-18 | Outpatient (CLI) | payer BC ==
[~2017-09-18] MED LIST: AMOX1TAB43 PO; CPR500 PO; LACTCHW3 PO
== END | disposition home or self-care (01) ==
LOC: C.CPL 11:19
PROVIDERS: ATTEND Orthopaedic Surgery
DX: Z01.810 Encounter for preprocedural cardiovascular examination (principal)

== ENCOUNTER → 2018-05-10 | Outpatient (CLI) | payer BC ==
--- NOTE | 2018-05-10 11:42 | DIAGNOSTIC IMAGING REPORT ---
CHEST 2 VIEWS ROUTINE HISTORY: Preop. COMPARISON: None. FINDINGS: The lungs are clear. Cardiac silhouette is normal in size. No pleural effusions. No pneumothorax. Old posttraumatic changes within the distal left clavicle. IMPRESSION: No acute process. Electronically signed by: Juan Antonio Pace M.D. 05/10/2018 11:41 AM Dictated Date/Time: 05/10/2018 11:40 AM
[2018-05-10 12:17] LABS: PTT PATIENT 25.4 SECONDS (21.0-31.0)
[2018-05-10 12:52] LABS: HEMOGLOBIN A1C 5.7 % (4.5-5.6)
== END | disposition home or self-care (01) ==
LOC: C.RAD 10:30
PROVIDERS: ATTEND Orthopaedic Surgery
DX: Z01.811 Encounter for preprocedural respiratory examination (principal); Z01.812 Encounter for preprocedural laboratory examination

== ENCOUNTER 2018-06-05 06:59 | Inpatient (IN) | payer BC ==
[2018-05-01 11:49] VITALS: BMI 29.0
--- NOTE | 2018-05-10 10:07 | History and Physical ---
History & Physical Date May 10, 2018. Chief Complaint Bilateral Knee Pain History of Present Illness BILATERAL KNEE PAIN Mr Ramsey is a 63 year old male who is here for a PRE-OPERATIVE VISIT, SCHEDULED FOR B/L KNEE TKA TO BE PERFORMED BY DR. RUSSELL ON 06/05/2018 @ [facility]. The symptoms occur intermittently. The problem is unchanged. Currently the patient states that the symptoms are moderate-severe. The pain is described as aching, discomforting and throbbing. The symptoms occur intermittently and are worsening. The symptoms are aggravated by ascending stairs, descending stairs, daily activities, driving, exercise, first steps while awake, kneeling, movement , repetitive activities, sleeping in any position, squatting and walking. Familia states that the symptoms are relieved by no specific activity. In addition to knee pain equally on both sides the patient is also experiencing decreased mobility, difficulty bending, difficulty going to sleep, limping, nighttime awakening, pain, stiffness, tenderness and weakness. Pertinent negatives include chills and fever. The patient has had a previous x-ray and MRI. Patient has had arthroscopic surgery. 05/09/2016 Dr. Carlson performed LEFT KNEE ARTHROSCOPY W/ PARTIAL MEDIAL MENISCECTOMY, CHONDROPLASTY MEDIAL FEMORAL CONDYLE and REMOVAL MULTIPLE CHONDRAL LOOSE BODIES at [facility], then underwent right knee arthroscopy and PMM by dr russell in September 2017. Past Medical/Surgical History Medical Problems: (1) Septic bursitis of elbow (2) Appendectomy as child (3) partial large bowel resection for diverticulitis, approximately 15 years ago Additional History Hepatic Disease: No Endocrine Disorder: No Kidney Disease: No Hypertension: No Heart Disease: No Bleeding Tendencies: No Infectious Diseases: No Allergies Coded Allergies: No Known Allergies (Unverified , 05/01/18) Home Medications No Active Prescriptions or Reported Meds Physical Examination Skin: warm/dry, no rash Eyes: normal inspection, EOMI, sclerae normal ENT: normal ENT inspection, pharynx normal Head: normocephalic, atraumatic Neck: supple, no adenopathy, trachea midline Respiratory/Chest: lungs clear, normal breath sounds, no respiratory distress Cardiovascular: regular rate, rhythm, no edema, no murmur Abdomen / GI: normal bowel sounds, non tender Addiitonal Comments: Bilateral Knee Physical Exam Exam Findings Details Ankle ROM L * Active ROM - Factors: normal, Description: active pain free range of motion. Passive ROM - Factors: normal, Description: passive pain free range of motion. Ankle ROM R * Active ROM - Factors: normal, Description: active pain free range of motion. Passive ROM - Factors: normal, Description: passive pain free range of motion. Hip ROM L * Active ROM - Factors: normal, Description: active pain free range of motion. Passive ROM - Factors: normal, Description: passive pain free range of motion. Hip ROM R * Active ROM - Factors: normal, Description: active pain free range of motion. Passive ROM - Factors: normal, Description: passive pain free range of motion. Knee ROM L * Active ROM - Flexion: 125 degrees, Extension: 3 degrees, Factors: pain, Description: active painful range of motion. Passive ROM - Flexion: 125 degrees, Extension: 3 degrees, Factors: pain, Description: passive painful range of motion. Knee ROM R * Active ROM - Flexion: 120 degrees, Extension: 3 degrees, Factors: pain, Description: active painful range of motion. Passive ROM - Flexion: 125 degrees, Extension: 3 degrees, Factors: pain, Description: passive painful range of motion. Strength LE Normal Strength Description - Normal lower extremity: Bilateral. Hip : Right: strength is normal, Left: strength is normal. Knee: Right: strength is normal, Left: strength is normal. Ankle/Foot: Right: strength is normal, Left: strength is normal. Knee * Inspection - Gait: limp. Alignment - Right: varus, Clinical, Left: varus. Ecchymosis - Right: none, Left: none. Effusion - Right: mild, Left: mild. Swelling - Right: mild, Left: none. Flexibility - Right: normal, Left: normal. Maximum tenderness - Right: diffuse, Left: diffuse. Patella exam - Crepitation - Right: moderate, Left: moderate. Patella position - Right: neutral , Left: neutral. Tilt - Right: equal, Left: normal. [facility]'s - lateral - Right : Positive, Left: Positive. [facility]'s - medial - Right: Positive, Left: Positive. Knee Comments Calf SNT, DP+2 Knee Normal Inspection - Atrophy - Right: Absent, Left: Absent. Skin - Right: Normal, Left: Normal. Patella exam - Apprehension - Right: Negative, Left: Negative. Q-angle - Right: Normal, Left: Normal. Shanon's - Right: Negative, Left: Negative. Posterior drawer - Right: Negative, Left: Negative. Reverse pivot-shift - Right: Negative, Left: Negative. Sag sign - Right: Negative, Left : Negative. Anterior drawer - Right: Negative, Left: Negative. Valgus stress - Right: Negative, Left: Negative. Varus stress - Right: Negative, Left: Negative. Extensor lag - Right: Normal, Left: Normal. Neurovascular LE Normal Neurovascular examination including reflexes, sensation , and pulses is within normal limits. Diagnosis BILATERAL KNEE OSTEOARTHRITIS Plan of Treatment Risks and benefits of procedure discussed in detail today, patient would like to proceed with Bilateral TKA @ [facility] as scheduled. will obtain medical clearance prior to surgery as well as obtain PATs at [facility]. Will place on Lovenox 40mg SQ daily for 2 weeks post-op, f/u 2 weeks post op for routine post- operative care and xray, sooner if having any problems. will make arrangements for Home Health at the time of discharge.
[2018-05-10 10:43] VITALS: BMI 28.0
[2018-06-05] VITALS (8 sets, daily range): BP systolic 99–153; BP diastolic 57–90; PULSE 64–100; TEMP 36.3–36.7; O2SAT 95–97; Ht 175.3 cm; Wt 87.7 kg
[~2018-06-05] VITALS: Ht 175.3 cm; Wt 87.7 kg
[2018-06-05] MEDS: TRANEXAMIC ACID INJ 1,000 MG x 2 Bags IV SCH ×4 (06:30→09:26)
[~2018-06-05 06:59] MED LIST changes: +ACETAMINOPHEN 500 MG TAB PO SCH; -AMOX1TAB43 PO; +CEFAZOLIN 2000MG IV PUSH 15 ML IV SCH; -CPR500 PO; +CeleBREX 200 MG CAP PO SCH; +DEXAMETHASONE 4 MG TAB PO SCH; +FAMOTIDINE 20 MG TAB PO SCH; +GABAPENTIN 300 MG CAP PO SCH; +LACTATED RINGER'S 1000ML 1,000 ML IV SCH; +LACTATED RINGER'S 1000ML 500 ML IV SCH; -LACTCHW3 PO; +METOCLOPRAMIDE HCL 10 MG TAB PO SCH; +ROPIVACAINE 5MG/ML 30 ML 150 MG, BUPIVACAINE 0.5% MPF INJ 30 ML, EpINEphrine HCL INJ 0.... INFIL SCH
[2018-06-05] MEDS ORDERED: BUPIVACAINE 0.5 % 5 MG/1 ML PF 10ML VIAL ONE (07:29)
[2018-06-05] MEDS ORDERED: ROPIVACAINE 0.5% 5 MG/ML 30 ML VIAL ONE (07:29)
[2018-06-05] MEDS ORDERED: FENTANYL CITRATE INJ 50 MCG/1 ML 2 ML VIAL ONE (07:51)
[2018-06-05] MEDS ORDERED: MIDAZOLAM HCL 1 MG/ML 2ML VIAL ONE (07:51)
[2018-06-05] MEDS ORDERED: PROPOFOL IV EMULSION 10 MG/ML 20 ML VIAL ONE ×3 (07:52→11:48)
[2018-06-05] MEDS ORDERED: LIDOCAINE HCL 2% 2 ML VIAL (20MG/ML) ONE (07:56)
[2018-06-05] MEDS ORDERED: ONDANSETRON INJ 2 MG/ML 2 ML VIAL ONE (07:58)
--- NOTE | 2018-06-05 08:33 | History & Physical Bridge Note ---
H&P Re-Evaluation Bridge Note: I have examined the patient, reviewed the History & Physical and in the interval since the performance of the History & Physical I have noted the following changes of clinical significance: No changes noted
[2018-06-05] MEDS ORDERED: BACITRACIN 50000 UNIT VIAL ONE (09:10)
[2018-06-05] MEDS ORDERED: ORTHO JOINT ANESTHETIC ONE (09:10)
[2018-06-05] MEDS ORDERED: POVIDONE-IODINE OP SOLN 30 ML BTL ONE (09:10)
[2018-06-05] MEDS ORDERED: EpHEDrine SULFATE INJ 50 MG/ML AMP ONE (09:55)
[2018-06-05] MEDS ORDERED: LABETALOL HCL IV 5 MG/ML 20ML IV PRN (11:15)
[2018-06-05] MEDS ORDERED: ONDANSETRON INJ 2 MG/ML 2 ML VIAL IV PRN ×2 (11:15→12:30)
[2018-06-05] MEDS ORDERED: MEPERIDINE HCL 25 MG/ML CARP IV PRN (11:15)
[2018-06-05] MEDS ORDERED: ATROPINE SULFATE 0.1 MG/ML 5ML SYR IV PRN (11:15)
[2018-06-05] MEDS ORDERED: HYDROmorphone INJ 1 MG/ML SYR IV PRN (11:15)
[2018-06-05] MEDS ORDERED: EpHEDrine SULFATE INJ 50 MG/ML AMP IV PRN (11:15)
[2018-06-05] MEDS ORDERED: FENTANYL CITRATE INJ 50 MCG/1 ML 2 ML VIAL IV PRN (11:15)
--- NOTE | 2018-06-05 11:40 | [facility] Post Operative Brief Note ---
Immediate Operative Summary Operative Date Jun 05, 2018. Pre-Operative Diagnosis Bilateral Knee osteoarthritis Post-Operative Diagnosis Severe end-stage DJD bilateral knees Procedure(s) Performed Bilateral total knee arthroplasty utilizing [place] journey to patient match total knee arthroplasty right size 6 femur 5 tibia 11 Felicitas 32 oval patella left size 6 femur 5 tibia 11 polyethylene [address] John Frances Car Top Bolter Surgeon(s) Maria C Carrasco PA-C Estimated Blood Loss 5cc rt 5cc lt Findings Consistent with Post-Op Diagnosis Specimens Bone and cartilage Anesthesia Type Spinal MAC Complication(s) none Disposition Disposition: Recovery Room / PACU Overlapping Procedure I was present for: the critical portions of procedure. I was immediately available: during the entire case Back up surgeon: was not required during procedure
--- NOTE | 2018-06-05 11:41 | [facility] Operative Report ---
Operative Report Operative Date Jun 05, 2018. Pre-Operative Diagnosis Bilateral Knee osteoarthritis Post-Operative Diagnosis Severe end-stage DJD bilateral knees Procedure(s) Performed Bilateral total knee arthroplasty utilizing [employer] journey to patient match total knee arthroplasty right size 6 femur 5 tibia 11 Felicitas 32 oval patella left size 6 femur 5 tibia 11 polyethylene [address] John Frances Political Director Surgeon(s) Maria C Carrasco PA-C Estimated Blood Loss 5cc rt 5cc lt Findings Patient presents with severe end-stage DJD bilateral knees is been no response to conservative therapy over a period of years with including injections anti- inflammatories at the time of surgery patient did have evidence of bilateral medial compartment DJD patellofemoral DJD [id number] eburnated bone with subchondral sclerosis cystic changes marginal osteophytes there is moderate to large effusions in bilateral knees with pseudo-ligamentous lacks cartilage and meniscal loss patient presents after failing attempts at conservative management for total knee arthroplasty bilateral Specimens Bone and cartilage Anesthesia Type Spinal MAC Complication(s) none Disposition Recovery Room / PACU Indications Patient presents after failing attempts at conservative management including physical therapy anti-inflammatories relative rest bracing activity modification corticosteroid injections Visco supplementation for bilateral total knee arthroplasty above findings were noted at the time of surgery Description of Procedure After proper prepping and draping of the bilateral lower extremities, an anterior midline incision was made over the region of the extensor extensor mechanism of the left knee. After meticulous hemostasis was obtained and maintained in subcutaneous tissues a medial parapatellar incision was made The patella was subluxed lateralward the medial lateral gutter were cleaned from any hypertrophic synovitis and scar tissue of the distal femoral block was placed and the distal femoral osteotomy cut was made subsequently the chamfers anterior and posterior osteotomy cuts were made utilizing the 4-in-1 block the tibia was subsequently subluxed anteriorward medial and ateral meniscal remnants were excised in their entirety remnants of the anterior and posterior cruciate ligaments were excised in their entirety excellent exposure of the proximal tibia was obtained the tibial osteotomy guide was placed on the proximal tibial osteotomy cut was made once again the knee was irrigated with copious amounts of sterile saline solution the patella was subsequently everted lateralward thickened scar tissue around the patella was removed the patella was subsequently cut utilizing a freehand technique and was drilled prepared for final preparation and placement of patella socially flexion-extension gaps were checked and the equal and symmetric trials were placed to the appropriate femoral and tibial trials with poly-spacer being placed for equal flexion and extension gaps and full range of motion including extension to 0 and flexion to 140 the trial components after having been taken to recovery range of motion was subsequently removed meticulous hemostasis was obtained and maintained subsequently a knee block injection of joint cocktail including ropivacaine 0.5 % 150 mg. Bupivacaine 0.5% epinephrine 1-200,030 mL's toradol 30 mg dexamethasone 4 mg ketamine 10 mg clonidine 100 micrograms normal saline solution 30 mg was infiltrated into the soft tissues of the posterior knee medial lateral gutters and periosteal synovium special attention was paid to protect neurovascular structures at all times subsequently trial components having been removed the knee was irrigated with sterile saline solution. debris was removed the proximal tibia was subsequently prepared and was made ready for the placement of the tibial component tibial component was also cemented and tamped into position the femoral component was subsequently placed and cemented in the position the patellar component was subsequently cemented in position because hemostasis once again obtained and maintained wound having been thoroughly irrigated with debridement and debridement lavage was performed as well as a medial parapatellar incision closed with #1 Vicryl in interrupted fashion subcutaneous was closed with #2 Vicryl skin was closed with skin clips Next, an anterior midline incision was made over the region of the extensor extensor mechanism of the right knee. After meticulous hemostasis was obtained and maintained in subcutaneous tissues a medial parapatellar incision was made The patella was subluxed lateralward the medial lateral gutter were cleaned from any hypertrophic synovitis and scar tissue of the distal femoral block was placed and the distal femoral osteotomy cut was made subsequently the chamfers anterior and posterior osteotomy cuts were made utilizing the 4-in-1 block the tibia was subsequently subluxed anteriorward medial and ateral meniscal remnants were excised in their entirety remnants of the anterior and posterior cruciate ligaments were excised in their entirety excellent exposure of the proximal tibia was obtained the tibial osteotomy guide was placed on the proximal tibial osteotomy cut was made once again the knee was irrigated with copious amounts of sterile saline solution the patella was subsequently everted lateralward thickened scar tissue around the patella was removed the patella was subsequently cut utilizing a freehand technique and was drilled prepared for final preparation and placement of patella socially flexion-extension gaps were checked and the equal and symmetric trials were placed to the appropriate femoral and tibial trials with poly-spacer being placed for equal flexion and extension gaps and full range of motion including extension to 0 and flexion to 140 the trial components after having been taken to recovery range of motion was subsequently removed meticulous hemostasis was obtained and maintained subsequently a knee block injection of joint cocktail including ropivacaine 0.5 % 150 mg. Bupivacaine 0.5% epinephrine 1-200,030 mL's toradol 30 mg dexamethasone 4 mg ketamine 10 mg clonidine 100 micrograms normal saline solution 30 mg was infiltrated into the soft tissues of the posterior knee medial lateral gutters and periosteal synovium special attention was paid to protect neurovascular structures at all times subsequently trial components having been removed the knee was irrigated with sterile saline solution. debris was removed the proximal tibia was subsequently prepared and was made ready for the placement of the tibial component tibial component was also cemented and tamped into position the femoral component was subsequently placed and cemented in the position the patellar component was subsequently cemented in position because hemostasis once again obtained and maintained wound having been thoroughly irrigated with debridement and debridement lavage was performed as well as a medial parapatellar incision closed with #1 Vicryl in interrupted fashion subcutaneous was closed with #2 Vicryl skin was closed with skin clips.. PA-C was necessary for prepping and drapping as well as wound closure of deep fascia Sub cutaneous tissue and skin and was necessary for the case. A sterile compressive dressings were placed, patient was taken to recovery in stable condition of report dictated by Juan Daniel I attest to the content of the Intraoperative Record and any orders documented therein. Any exceptions are noted below. I attest to the content of the Intraoperative Record and any orders documented therein. Any exceptions are noted below.
[2018-06-05] MEDS ORDERED: ALUMINUM/MAGNESIUM/SIMETH (MAALOX MAX) 30 ML UDC PO PRN (12:30)
[2018-06-05] MEDS ORDERED: ZOLPIDEM TARTRATE 5 MG TAB PO PRN (12:30)
[2018-06-05] MEDS ORDERED: MoRPHine SULFATE 2 MG/ML CARP IV PRN ×2 (12:30→14:15)
[2018-06-05] MEDS ORDERED: BISACODYL 10 MG SUPP PR PRN (12:30)
[2018-06-05] MEDS ORDERED: MAGNESIUM HYDROXIDE SUSP 30 ML UDC PO PRN (12:30)
[2018-06-05] MEDS ORDERED: SOD PHOSPHATE/SOD BIPHOSPHATE ENEMA 132 ML BTL PR PRN (12:30)
--- NOTE | 2018-06-05 13:02 | DIAGNOSTIC IMAGING REPORT ---
L KNEE 1 OR 2 VIEWS ROUTINE CLINICAL HISTORY: Postoperative evaluation. COMPARISON: Knee radiographs April 26, 2018 FINDINGS: Alignment of the total left knee arthroplasty is anatomic. There is no fracture or unexpected radiopaque foreign body. Surgical drains are in place. IMPRESSION: Expected findings following total left knee arthroplasty. Electronically signed by: Taqueria Salazar M.D. 06/05/2018 1:01 PM Dictated Date/Time: 06/05/2018 1:00 PM
--- NOTE | 2018-06-05 13:08 | DIAGNOSTIC IMAGING REPORT ---
R KNEE 2 VIEWS ROUTINE CLINICAL HISTORY: Degenerative arthritis COMPARISON: Outside conventional radiographic study dated 05/10/2018 DISCUSSION: There are postsurgical changes of a total right knee arthroplasty and patellar resurfacing. The femoral and tibial components appear well seated. No fractures or subluxations are visualized. There is air within soft tissues consistent with recent surgery. There is overlying surgical drain. IMPRESSION: Postsurgical changes of a total right knee arthroplasty. Electronically signed by: Murtaza Ricketts M.D. 06/05/2018 1:07 PM Dictated Date/Time: 06/05/2018 1:04 PM
--- NOTE | 2018-06-05 13:25 | Anesthesiology Progress Note ---
Anesthesia Post Op Note Date & Time Jun 05, 2018 at 13:24 Vital Signs Pain Intensity: 0 Vital Signs Past 12 Hours Date Time Temp Pulse Resp B/P (MAP) Pulse Ox O2 Delivery O2 Flow Rate FiO2 06/05/18 13:21 36.3 84 16 126/86 (99) 96 Nasal Cannula 2.0 06/05/18 13:06 135/80 06/05/18 13:03 70 14 06/05/18 13:03 70 14 96 06/05/18 13:01 116/69 06/05/18 12:58 59 17 06/05/18 12:58 60 17 95 06/05/18 12:56 128/75 06/05/18 12:53 78 17 95 06/05/18 12:53 78 17 06/05/18 12:52 74 15 96 06/05/18 12:52 74 15 06/05/18 12:51 129/78 06/05/18 12:47 81 20 06/05/18 12:47 83 20 94 06/05/18 12:46 133/91 06/05/18 12:45 36.4 78 16 129/78 (85) 95 Nasal Cannula 2 06/05/18 12:42 84 16 95 06/05/18 12:42 86 16 06/05/18 12:41 139/85 06/05/18 12:41 139/85 06/05/18 12:40 86 16 06/05/18 12:40 86 16 06/05/18 12:40 85 16 99 06/05/18 12:40 85 16 99 06/05/18 12:36 128/84 06/05/18 12:36 128/84 06/05/18 12:35 84 17 06/05/18 12:35 84 17 06/05/18 12:35 84 17 94 06/05/18 12:35 84 17 94 06/05/18 12:31 123/83 06/05/18 12:31 123/83 06/05/18 12:30 84 15 06/05/18 12:30 79 15 97 06/05/18 12:30 79 15 97 06/05/18 12:30 84 15 06/05/18 12:26 119/85 06/05/18 12:26 119/85 06/05/18 12:25 87 17 06/05/18 12:25 91 17 95 06/05/18 12:25 87 17 06/05/18 12:25 91 17 95 06/05/18 12:22 116/73 06/05/18 12:22 116/73 06/05/18 12:20 36.2 89 20 116/73 (77) 94 Nasal Cannula 2 06/05/18 07:59 36.7 64 18 153/90 97 Room Air Notes Mental Status: alert / awake / arousable, participated in evaluation Pt Amnestic to Procedure: Yes Nausea / Vomiting: adequately controlled Pain: adequately controlled Airway Patency, RR, SpO2: stable & adequate BP & HR: stable & adequate Hydration State: stable & adequate Neuraxial Anesthesia: was administered, sensory block is resolving Anesthetic Complications: no major complications apparent
[2018-06-05] MEDS ORDERED: MoRPHine SULFATE 10 MG/ML CARP/VIAL IV PRN (14:15)
[2018-06-05] MEDS ORDERED: MoRPHine SULFATE 4 MG/ML 1 ML CARP\\VIAL IV PRN (14:15)
[2018-06-05] MEDS: D5W AND 1/2NSS + 20MEQ KCL 1,000 ML IV SCH (14:50)
[2018-06-05] MEDS: OXYCODONE HCL IR 5 MG TAB (IMMEDIATE RELEASE) PO PRN ×2 (16:48→21:15)
[2018-06-05] MEDS: CEFAZOLIN IV 2,000 MG in SYRINGE 0 ML IV SCH (17:38)
[2018-06-05] MEDS: KETOROLAC TROMETHAMINE 30 MG/ML VIAL IV. PRN (17:39)
[2018-06-05] MEDS: TRAMADOL HCL 50 MG TAB PO PRN (19:46)
[2018-06-05] MEDS: ACETAMINOPHEN 500 MG TAB PO SCH (20:42)
[2018-06-05] MEDS: DOCUSATE SODIUM 100 MG CAP PO SCH (20:42)
[2018-06-05] MEDS: SENNA 8.6 MG TAB PO SCH (20:42)
[2018-06-06] MEDS: D5W AND 1/2NSS + 20MEQ KCL 1,000 ML IV SCH ×2 (00:09→09:46)
[2018-06-06] MEDS: TRAMADOL HCL 50 MG TAB PO PRN ×2 (00:11→12:24)
[2018-06-06] MEDS: CEFAZOLIN IV 2,000 MG in SYRINGE 0 ML IV SCH (02:04)
[2018-06-06 03:30] VITALS: BP 98/59; PULSE 64; TEMP 36.4; O2SAT 94
[2018-06-06] MEDS: ACETAMINOPHEN 500 MG TAB PO SCH ×3 (05:33→21:16)
[2018-06-06 07:05] LABS: HEMATOCRIT 30.7 % (42-52); HEMOGLOBIN 10.5 g/dL (14.0-18.0); MEAN CORPUSCULAR HEMOGLOBIN 29.4 pg (25-34); MEAN CORPUSCULAR HGB CONC 34.2 g/dl (32-36); MEAN PLATELET VOLUME 8.8 fL (7.4-10.4); PLATELET COUNT 218 K/uL (130-400); RED CELL DISTRIBUTION WIDTH CV 12.8 % (11.5-14.5); RED CELL DISTRIBUTION WIDTH SD 40.1 fL (36.4-46.3); WHITE BLOOD COUNT 13.37 K/uL (4.8-10.8)
[2018-06-06 07:44] LABS: CALCIUM 7.8 mg/dl (8.5-10.1); CREATININE 0.9 mg/dl (0.60-1.40); POTASSIUM 4.2 mmol/L (3.5-5.1)
--- NOTE | 2018-06-06 07:44 | Anesthesiology Progress Note ---
Anesthesia Post Op Note Date & Time Jun 06, 2018 at 07:43 Vital Signs Pain Intensity: 2.0 Vital Signs Past 12 Hours Date Time Temp Pulse Resp B/P (MAP) Pulse Ox O2 Delivery O2 Flow Rate FiO2 06/06/18 03:30 36.4 64 16 98/59 (72) 94 Room Air 06/05/18 23:00 36.6 66 16 99/57 (71) 96 Room Air Notes Mental Status: alert / awake / arousable, participated in evaluation Pt Amnestic to Procedure: Yes Nausea / Vomiting: adequately controlled Pain: adequately controlled Airway Patency, RR, SpO2: stable & adequate BP & HR: stable & adequate Hydration State: stable & adequate Neuraxial Anesthesia: sensory block resolved Anesthetic Complications: no major complications apparent
[2018-06-06 07:50] VITALS: BP 118/72; PULSE 53; TEMP 36.5; O2SAT 95
[2018-06-06] MEDS: DOCUSATE SODIUM 100 MG CAP PO SCH ×2 (08:45→21:17)
[2018-06-06] MEDS: MULTIVITAMIN TAB PO SCH (08:45)
[2018-06-06] MEDS: OXYCODONE HCL IR 5 MG TAB (IMMEDIATE RELEASE) PO PRN ×3 (08:47→19:45)
--- NOTE | 2018-06-06 09:14 | Orthopedic Progress Note ---
Orthopedic Progress Note Date of Service Jun 06, 2018. Subjective Post OP Day: 1 Reports: feeling well, Denies: complaints Objective calves soft nontender, N/V intact, dressing C/D/I, A&O x3, toes mobile Date Time Temp Pulse Resp B/P (MAP) Pulse Ox O2 Delivery O2 Flow Rate FiO2 06/06/18 08:15 Room Air 06/06/18 07:50 36.5 53 16 118/72 (87) 95 Room Air 06/06/18 03:30 36.4 64 16 98/59 (72) 94 Room Air 06/05/18 23:00 36.6 66 16 99/57 (71) 96 Room Air 06/05/18 19:20 Room Air 06/05/18 18:54 36.5 81 16 148/78 (101) 96 Room Air 06/05/18 16:20 36.4 77 17 132/73 (92) 97 Room Air 06/05/18 15:31 36.5 100 16 153/81 (105) 95 Room Air 06/05/18 15:22 Room Air 06/05/18 14:20 83 18 149/88 (108) 96 06/05/18 14:00 89 18 143/88 (106) 97 06/05/18 13:21 36.3 84 16 126/86 (99) 96 Nasal Cannula 2.0 06/05/18 13:20 Nasal Cannula 2.0 06/05/18 13:20 Nasal Cannula 2.0 06/05/18 13:06 135/80 06/05/18 13:03 70 14 06/05/18 13:03 70 14 96 06/05/18 13:01 116/69 06/05/18 12:58 59 17 06/05/18 12:58 60 17 95 06/05/18 12:56 128/75 06/05/18 12:53 78 17 95 06/05/18 12:53 78 17 06/05/18 12:52 74 15 96 06/05/18 12:52 74 15 06/05/18 12:51 129/78 06/05/18 12:47 81 20 06/05/18 12:47 83 20 94 06/05/18 12:46 133/91 06/05/18 12:45 36.4 78 16 129/78 (85) 95 Nasal Cannula 2 06/05/18 12:42 84 16 95 06/05/18 12:42 86 16 06/05/18 12:41 139/85 06/05/18 12:41 139/85 06/05/18 12:40 86 16 06/05/18 12:40 86 16 06/05/18 12:40 85 16 99 06/05/18 12:40 85 16 99 06/05/18 12:36 128/84 06/05/18 12:36 128/84 06/05/18 12:35 84 17 06/05/18 12:35 84 17 06/05/18 12:35 84 17 94 06/05/18 12:35 84 17 94 06/05/18 12:31 123/83 06/05/18 12:31 123/83 06/05/18 12:30 84 15 06/05/18 12:30 79 15 97 06/05/18 12:30 79 15 97 06/05/18 12:30 84 15 06/05/18 12:26 119/85 06/05/18 12:26 119/85 06/05/18 12:25 87 17 06/05/18 12:25 91 17 95 06/05/18 12:25 87 17 06/05/18 12:25 91 17 95 06/05/18 12:22 116/73 06/05/18 12:22 116/73 06/05/18 12:20 36.2 89 20 116/73 (77) 94 Nasal Cannula 2 Laboratory Results 24 Hours: Test 06/06/18 06:38 Hematocrit 30.7 % Hemoglobin 10.5 g/dL Prothromb Time International Ratio 1.0 Prothrombin Time 10.5 SECONDS Assessment & Plan Assessment: POD 1 s/p Bilateral TKA Plan: PT/OT Planning for HH Services upon dc Inhouse Planning Pain Management: Celebrex, Toradol, Ultram, Morphine, PO Tylenol, Oxy IR DVT Prophylaxis: TEDs, SCDs, Lovenox Discharge Planning Discharge Planning: home with home health
[2018-06-06] MEDS: ENOXAPARIN 40 MG/0.4 ML SYR SQ SCH (09:45)
[2018-06-06] MEDS: KETOROLAC TROMETHAMINE 30 MG/ML VIAL IV. PRN ×3 (09:50→23:23)
[2018-06-06 11:01] VITALS: BP 121/68; PULSE 60
[2018-06-06] MEDS ORDERED: NURSING VERBAL MED ORDER ONE (13:45)
[2018-06-06 15:37] VITALS: BP 137/68; PULSE 70; TEMP 36.3; O2SAT 97
[2018-06-06] MEDS ORDERED: CeleBREX 200 MG CAP PO SCH (21:00)
[2018-06-06] MEDS: SENNA 8.6 MG TAB PO SCH (21:16)
[2018-06-06 23:25] VITALS: BP 103/60; PULSE 64; TEMP 36.5; O2SAT 96
[2018-06-07] MEDS: OXYCODONE HCL IR 5 MG TAB (IMMEDIATE RELEASE) PO PRN ×4 (03:35→23:30)
[2018-06-07] MEDS: ACETAMINOPHEN 500 MG TAB PO SCH ×3 (06:03→21:25)
[2018-06-07 07:03] VITALS: BP 104/64; PULSE 56; TEMP 36.5; O2SAT 96
[2018-06-07] MEDS: ENOXAPARIN 40 MG/0.4 ML SYR SQ SCH (08:39)
[2018-06-07] MEDS: DOCUSATE SODIUM 100 MG CAP PO SCH ×2 (08:39→20:28)
[2018-06-07] MEDS: MULTIVITAMIN TAB PO SCH (08:39)
--- NOTE | 2018-06-07 09:37 | Orthopedic Progress Note ---
Orthopedic Progress Note Date of Service Jun 07, 2018. Subjective Post OP Day: 2 Reports: feeling well, Denies: chest pain, SOB, nausea / vomiting, light headedness, calf pain Additional Notes: Had a rough night concerning pain issues. Would like to stay one more day. Doing PT currently. Tolerating fairly well. No other complaints. Objective calves soft nontender, N/V intact, incision C/D/I, A&O x3 Date Time Temp Pulse Resp B/P (MAP) Pulse Ox O2 Delivery O2 Flow Rate FiO2 06/07/18 07:50 Room Air 06/07/18 07:03 36.5 56 18 104/64 (77) 96 Room Air 06/06/18 23:25 36.5 64 17 103/60 (74) 96 Room Air 06/06/18 19:40 Room Air 06/06/18 15:37 36.3 70 16 137/68 (91) 97 Room Air 06/06/18 15:30 Room Air 06/06/18 11:01 60 Assessment & Plan Assessment: POD 2 s/p Bilateral TKA Plan: PT/OT Planning for HH Services upon dc Plan for dc Sunday Inhouse Planning Pain Management: Celebrex, Ultram, Morphine, PO Tylenol, Oxy IR DVT Prophylaxis: TEDs, SCDs, Lovenox Discharge Planning Discharge Planning: home with home health
[2018-06-07] MEDS: KETOROLAC TROMETHAMINE 30 MG/ML VIAL IV. PRN ×2 (12:06→18:07)
--- NOTE | 2018-06-07 12:48 | Discharge Instructions ---
Discharge Instructions Date of Service Jun 07, 2018. Admission Reason for Admission: Bilateral Knee Osteoarthritis Discharge Discharge Diagnosis / Problem: Bilateral Knee Osteoarthritis Discharge Goals Goal(s): Decrease discomfort, Improve function, Increase independence Activity Recommendations Activity Limitations: per Instructions/Follow-up section Weightbearing Status: Left weightbearing (as tolerated), Right weightbearing ( as tolerated) . Instructions / Follow-Up Instructions / Follow-Up ACTIVITY RECOMMENDATIONS: SELF CARE INSTRUCTIONS AFTER TOTAL KNEE REPLACEMENT A. You may need to continue a physical therapy program after discharge from the hospital. There are several options available to you. Your doctor will assist you in selecting the best one for you. 1. An out-patient facility 2 to 3 times a week for therapy or home therapy. 2. Continue working on all exercises taught to you in the hospital. Your goals should be to increase bending of your knee to 90 degrees and beyond and to fully straighten your knee. B. You may progress at your own pace from walking with a walker or crutches to a cane; then to no assistive devices. C. Make walking a part of your daily routine. Be up as much as comfortable with rest periods throughout the day. Rest with leg elevation is very important. Use the ice wrap frequently for the first 3-4 weeks. D. There are no restrictions on activities. You may ride in a car, shop, participate in engine builder and all social activities. E. Wear the long elastic stockings (PAULO hose) 20 hours a day for 2 weeks after surgery. They can be removed several times a day for laundering and for a bath. F. You may shower, no tub baths until cleared by your doctor. SPECIAL CARE INSTRUCTIONS: VERY IMPORTANT TO READ AND REVIEW A. There are a few signs you need to watch for after you are home. Call [facility] [place] if you notice any of the followin. Increased severe knee pain. Some pain is expected especially when you exercise. 2. Increased swelling in your leg or knee; pain or swelling of the calf muscle in either lower leg. 3. Any fluid drainage from the incision. 4. Shortness of breath or chest pain. B. Please call [facility] at if you have any concerns or questions about your operation or recovery. The doctor or his nurse will return your call promptly. C. You must take antibiotics before dental work, bladder, bowel or other surgery. Your doctor will provide you with a permanent care to carry describing this precaution. IMPORTANT: * REMEMBER TO TAKE LOVENOX 40MG INJECTION ONCE DAILY FOR 2 WEEKS UNLESS OTHERWISE DIRECTED. THIS IS YOUR BLOOD THINNER. * CALL IF INCREASED PAIN, REDNESS, DRAINAGE OR FEVER GREATER THAT 101. * WEAR PAULO HOSE 20 HOURS PER DAY FOR 2 WEEKS. * DERMABOND Prineo- This is a mesh tape dressing that is covered with glue. It should remain in place until the incision is properly healed, usually 10-14 days. This dressing is designed to naturally slough off. You may trim the excess mesh tape as it peels off. Incision may be briefly wet in a shower. Dry immediately by blotting with a clean, dry towel. Do not bath or swim until instructed by your doctor. Do not scratch, rub, or pick at the dressing. Do not apply any topical ointments or lotions until dressing is completely removed and/or instructed by your doctor. There may be a small piece of suture material at one end of your incision. Do not pull or trim this. If it is bothersome or catching on clothing, you may cover it with a band-aid. . FOLLOW UP VISIT: If appointment is not already scheduled: Please call [facility] to make a follow-up appointment for 2 weeks after your surgery at . Current Hospital Diet Patient's current hospital diet: Regular Diet Discharge Diet Recommended Diet: Regular Diet Procedures Procedures Performed: Bilateral Total Knee Arthroplasty Pending Studies Studies pending at discharge: no Laboratory Results Hemoglobin A1c Test 05/10/18 11:16 Range/Units Estimated Average Glucose 117 mg/dl Hemoglobin A1c 5.7 H 4.5-5.6 % Medical Emergencies . Who to Call and When: Medical Emergencies: If at any time you feel your situation is an emergency, please call 911 immediately. . Non-Emergent Contact Non-Emergency issues call your: Surgeon Call Non-Emergent contact if: temperature is above 101.5, your pain is not controlled, your pain is worsening, wound has increased drainage, wound has increased redness . "Provider Documentation" section prepared by Devyn Ying. . [place] Drug Monitoring Program Search Results: patient reviewed within database, no issues identified
[2018-06-07 14:57] VITALS: BP 114/61; PULSE 79; TEMP 37.1; O2SAT 97
[2018-06-07] MEDS: SENNA 8.6 MG TAB PO SCH (20:28)
[2018-06-07 23:25] VITALS: BP 129/73; PULSE 84; TEMP 36.9; O2SAT 91
[2018-06-08] MEDS: KETOROLAC TROMETHAMINE 30 MG/ML VIAL IV. PRN ×2 (02:12→09:04)
[2018-06-08] MEDS: ACETAMINOPHEN 500 MG TAB PO SCH (05:38)
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
[2018-06-08 07:40] VITALS: BP 116/68; PULSE 71; TEMP 36.5; O2SAT 97
[2018-06-08] MEDS ORDERED: ACET-24 PO (07:40)
[2018-06-08] MEDS ORDERED: SENN-61 PO (07:40)
[2018-06-08] MEDS ORDERED: LVNIS40 SQ (07:40)
[2018-06-08] MEDS ORDERED: RXC5 PO (07:40)
[2018-06-08] MEDS ORDERED: CEPH500C2 PO (07:50)
[2018-06-08] MEDS: DOCUSATE SODIUM 100 MG CAP PO SCH (09:04)
[2018-06-08] MEDS: MULTIVITAMIN TAB PO SCH (09:04)
[2018-06-08] MEDS: ENOXAPARIN 40 MG/0.4 ML SYR SQ SCH (09:04)
[2018-06-08 11:30] VITALS: BP 149/82; PULSE 87; TEMP 36.4; O2SAT 93
[2018-06-08] MEDS: OXYCODONE HCL IR 5 MG TAB (IMMEDIATE RELEASE) PO PRN (11:48)
--- NOTE | 2018-06-10 12:11 | Discharge Summary ---
Orthopedic Discharge Summary Admission Date/Reason Jun 05, 2018 at 08:33 Bilateral Knee Osteoarthritis. Discharge Date/Disposition Jun 08, 2018 Home with services Diagnosis Principal Diagnosis: BILATERAL TOTAL KNEE REPLACEMENTS Procedure(s) Performed Bilateral total knee arthroplasty utilizing [employer] journey to patient match total knee arthroplasty right size 6 femur 5 tibia 11 Felicitas 32 oval patella left size 6 femur 5 tibia 11 polyethylene 32 oval patella Consultations NONE Medication Reconciliation New Medications: Cephalexin Monohydrate (Keflex) 500 Mg Cap 500 MG PO QID for 5 Days, #20 CAP Acetaminophen (Sb Non-Aspirin Extra Stre) 500 Mg Tab 1000 MG PO Q8H, #30 TAB Enoxaparin (Enoxaparin Sodium) 40 Mg/0.4 Ml Inj 40 MG SQ QAM for 14 Days Oxycodone HCl (Oxycodone HCl) 5 Mg Tab 5 MG PO q4-6h PRN for Pain, #30 TAB Senna (Senokot) 8.6 Mg Tab 17.2 MG PO HS, #30 TAB Admission Physical Exam As per Admitting History & Physical. Hospital Course Patient was a same day admission after undergoing successful bilateral TKAs. He tolerated the procedure well. Post-operatively, his activity was progressed and well tolerated. Please refer to daily progress notes and PT notes for complete details. After exam on 06/08/18, patient felt to be stable for discharge home with home health PT. Patient will f/u in the office in 2 weeks for further evaluation including x-rays and incision check, sooner if having any issues or concerns. Below are pertinent labs/studies during their hospital stay: Last Vital Signs Documentation Date Time Temp Pulse Resp B/P (MAP) Pulse Ox O2 Delivery O2 Flow Rate FiO2 06/08/18 11:30 36.4 87 20 149/82 (104) 93 Room Air 06/05/18 13:21 2.0 Last Resulted CBC 06/06/18 06:38 Last Resulted BMP 06/06/18 06:38 Discharge Instructions ACTIVITY RECOMMENDATIONS: SELF CARE INSTRUCTIONS AFTER TOTAL KNEE REPLACEMENT A. You may need to continue a physical therapy program after discharge from the hospital. There are several options available to you. Your doctor will assist you in selecting the best one for you. 1. An out-patient facility 2 to 3 times a week for therapy or home therapy. 2. Continue working on all exercises taught to you in the hospital. Your goals should be to increase bending of your knee to 90 degrees and beyond and to fully straighten your knee. B. You may progress at your own pace from walking with a walker or crutches to a cane; then to no assistive devices. C. Make walking a part of your daily routine. Be up as much as comfortable with rest periods throughout the day. Rest with leg elevation is very important. Use the ice wrap frequently for the first 3-4 weeks. D. There are no restrictions on activities. You may ride in a car, shop, participate in food preservation scientist and all social activities. E. Wear the long elastic stockings (PAULO hose) 20 hours a day for 2 weeks after surgery. They can be removed several times a day for laundering and for a bath. F. You may shower, no tub baths until cleared by your doctor. SPECIAL CARE INSTRUCTIONS: VERY IMPORTANT TO READ AND REVIEW A. There are a few signs you need to watch for after you are home. Call [facility] if you notice any of the followin. Increased severe knee pain. Some pain is expected especially when you exercise. 2. Increased swelling in your leg or knee; pain or swelling of the calf muscle in either lower leg. 3. Any fluid drainage from the incision. 4. Shortness of breath or chest pain. B. Please call [facility] at if you have any concerns or questions about your operation or recovery. The doctor or his nurse will return your call promptly. C. You must take antibiotics before dental work, bladder, bowel or other surgery. Your doctor will provide you with a permanent care to carry describing this precaution. IMPORTANT: * REMEMBER TO TAKE ASPIRIN, 81 MG, TWICE DAILY FOR 4 WEEKS UNLESS OTHERWISE DIRECTED. THIS IS YOUR BLOOD THINNER. * HIGH RISK PATIENTS MAY BE PRESCRIBED A STRONGER BLOOD THINNER. THIS WILL BE PROVIDED AT DISCHARGE. * CALL IF INCREASED PAIN, REDNESS, DRAINAGE OR FEVER GREATER THAT 101. * WEAR PAULO HOSE 20 HOURS PER DAY FOR 2 WEEKS. * DERMABOND Prineo- This is a mesh tape dressing that is covered with glue. It should remain in place until the incision is properly healed, usually 10-14 days. This dressing is designed to naturally slough off. You may trim the excess mesh tape as it peels off. Incision may be briefly wet in a shower. Dry immediately by blotting with a clean, dry towel. Do not bath or swim until instructed by your doctor. Do not scratch, rub, or pick at the dressing. Do not apply any topical ointments or lotions until dressing is completely removed and/or instructed by your doctor. There may be a small piece of suture material at one end of your incision. Do not pull or trim this. If it is bothersome or catching on clothing, you may cover it with a band-aid. FOLLOW UP VISIT: If appointment is not already scheduled: Please call [facility] to make a follow-up appointment for 2 weeks after your surgery at .
== END 2018-06-08 13:22 | disposition home health service (06) | DRG 462 ==
LOC: C.ACU 06:59 → C.3E 08:33 → ENRESERV 12:36
PROVIDERS: ADMIT Orthopaedic Surgery; ATTEND Orthopaedic Surgery
PROC: 0SRD0J9 Replacement of Left Knee Joint with Synthetic Substitute, Cemented, Open Approach (ICD-10-PCS; principal; 2018-06-05 09:45)
PROC: 0SRC0J9 Replacement of Right Knee Joint with Synthetic Substitute, Cemented, Open Approach (ICD-10-PCS; principal; 2018-06-05 09:45)
DX: M17.0 Bilateral primary osteoarthritis of knee (principal); S80.222A Blister (nonthermal), left knee, initial encounter; X58.XXXA Exposure to other specified factors, initial encounter